=== PATIENT | female | born 1985 | race Hispanic/Latino ===

== ENCOUNTER 2020-02-19 12:33 | Inpatient (IN) | payer OTHER ==
[2020-02-19 13:50] LABS: #Lymphocytes 1.3 thou/uL (1.20-3.40); #Monocytes 0.4 thou/uL (0.11-0.59); %Basophils 0.5 % (0.0-1.0); %Eosinophils 0.5 % (0.0-10.0); %Lymphocytes 18.7 % (21.0-51.0); %Neutrophils 74.3 % (42.0-75.0); Hemoglobin 6.3 g/dL (12.0-16.0); Mean Corpuscular HGB CONC 35.3 g/dL (32.0-36.0); Mean Corpuscular Hemoglobin 33.8 pg (27.0-31.0); Mean Corpuscular Volume 95.8 fL (78.0-98.0); Mean Platelet Volume 7.6 fL (7.4-10.4); Platelet Count 235 thou/uL (130-400); RBC Distribution Width 10.8 % (11.5-14.5); Red Blood Cell (RBC) Count 1.86 mill/uL (4.20-5.40); White Blood Cell (WBC) Count 6.7 thou/uL (4.8-10.8)
[2020-02-19 14:06] LABS: BHCG - Serum Negative (NEGATIVE); Pregs Control Background? CLEAR/WHITE (CLR/WHITE); Pregs Control Bar Appear? YES (CONTROL BAR)
[2020-02-19 14:19] LABS: ALT (SGPT) 7 U/L (8-55); AST (SGOT) 12 U/L (5-34); Albumin 4.1 g/dL (3.5-5.0); Alkaline Phosphatase 81 U/L (40-110); Anion Gap 27 mmol/L (10-20); BUN (Urea Nitrogen) 121 mg/dL (7.0-18.7); Bilirubin, Total 0.4 mg/dL (0.2-1.2); Calc. Creatinine Clearance 0 mL/min (70-130); Carbon Dioxide 14 mmol/L (22-29); Chloride 105 mmol/L (98-107); Estimated GFR-MDRD 3; Globulin 3.3 g/dL (2.4-3.5); Glucose 102 mg/dL (70-105); Potassium 4.2 mmol/L (3.5-5.1); Protein, Total 7.4 g/dL (6.0-8.3); Sodium 142 mmol/L (136-145)
[2020-02-19 14:29] LABS: Calcium 4.9 mg/dL (7.8-10.44)
[2020-02-19 15:23] LABS: Magnesium 2.5 mg/dL (1.6-2.6)
[2020-02-19] MEDS ORDERED: Sodium Bicarbonate 2.5 MEQ/5 ML VIAL ONE (16:00)
[2020-02-19] MEDS ORDERED: Sodium Bicarb 50 MEQ/50 ML VIAL ONE (16:00)
[2020-02-19 16:08] LABS: Bacteria/HPF 4+ HPF (None Seen); Bilirubin Negative (Negative); Blood, Urine 1+ (Negative); Clarity Turbid (Clear); Glucose, Urine (Dipstick) Normal (Negative); Ketone, Urine Negative (Negative); Leukocyte 500 Leu/uL (Negative); Nitrite Negative (Negative); Protein, Urine (Dipstick) 300 mg/dL (Neg-Trace); Squamous Epithelial 0-3 HPF (0-3); Urobilinogen Normal mg/dL (Less than 2); WBC/HPF Greater than 50 HPF (0-3); pH, Urine 6.5 (5.0-9.0)
--- NOTE | 2020-02-19 16:54 | ULT ---
US Renal Bilateral STANDARD: 02/19/2020 3:41 PM CLINICAL HISTORY: Renal failure. STUDY: Renal ultrasound COMPARISON: None. FINDINGS: Right kidney: Echogenicity: Increased. Masses/cysts: 1.1 cm cyst in the upper pole Hydronephrosis: None. Calcifications: None. Length: 6.1 cm Left kidney: Echogenicity: Increased. Masses/cysts: None. Hydronephrosis: None. Calcifications: None. Length: 9.0 cm Limited visualization of the urinary bladder is unremarkable. IMPRESSION: 1. Echogenic kidneys are likely secondary to chronic medical renal disease 2. Right renal cyst
[2020-02-19] MEDS ORDERED: Calcium Carbonate 500 MG ChewTAB PO PRN (17:14)
[2020-02-19] MEDS ORDERED: Calcium Gluconate 4.6 MEQ in Sodium Chloride 0.9% 100 ML IVPB SCH (18:00)
[2020-02-19] MEDS ORDERED: Labetalol HCl 100 MG/20 ML VIAL SLOW IVP PRN (18:54)
[2020-02-19] MEDS ORDERED: CEFAZOLIN 2 GM in Premix Bag 1 BAG IVPB SCH (19:15)
--- NOTE | 2020-02-19 19:46 | HP ---
PRIMARY CARE PHYSICIAN: [facility] in [facility]. CHIEF COMPLAINT: Lab abnormality. HISTORY OF PRESENT ILLNESS: This is a 35-year-old female who presents after a 2-week history of nausea, vomiting, and diarrhea. She states she has vomiting about two or three times a day, has occasional loose bowel movements with that. All of this got better after about 3 days ago. She had noted some blurry vision of her left eye and also noted her skin seems to be changed in color a couple of weeks ago and that she was having ecchymoses on her arms and legs on and off for the last couple of weeks as well. Denies any other symptoms and states she feels fairly normal right now. REVIEW OF SYSTEMS: CONSTITUTIONAL: No fevers. No chills. No weight changes. EYES: No double vision. She had blurred vision as per HPI. ENT: No congestion, drainage, or sore throat. CARDIOVASCULAR: No chest pain or palpitations. PULMONARY: No coughing, wheezing, or shortness of breath. GASTROINTESTINAL: No abdominal pain. The rest is as per the HPI. No blood noted in her bowel movements or in her vomit. GENITOURINARY: No dysuria or hematuria. She has not noticed any change in her urine output, but states that her urine has smelled somewhat funny for the last couple of weeks. EXTREMITIES: No muscle aches or joint pains. SKIN: As per HPI. NEUROLOGIC: No numbness, tingling, or focal weakness. PAST MEDICAL HISTORY: None. PAST SURGICAL HISTORY: None. SOCIAL HISTORY: No tobacco, alcohol, or illicit drug use. The patient is . She is a full code. Should she be incapacitated, her would be her next medical decision maker. His name is Angela Shaver. FAMILY HISTORY: She has a cousin, who was born with his one kidney. No other significant medical problems in the family. ALLERGIES: NO KNOWN DRUG ALLERGIES. CURRENT MEDICATIONS: Amlodipine 5 mg daily, started a couple of days ago when she went to the clinic and they noted that she had some high blood pressure. PHYSICAL EXAMINATION: VITAL SIGNS: Blood pressure 146/96, pulse 96, respirations 20, temperature 98.2, and O2 saturation 100% on room air. GENERAL: This is a well-developed, well-nourished female, in no acute distress. HEENT: Pupils equal, round, and reactive to light. Oropharynx clear without lesions, erythema, or exudate. NECK: Supple. No lymphadenopathy. No thyroid nodules or enlargement. No JVD. HEART: Regular rate and rhythm. No murmurs, rubs, or gallops. LUNGS: Clear to auscultation bilaterally. No wheezes, crackles, or rhonchi. ABDOMEN: Soft, nontender to palpation. Normoactive bowel sounds. No hepatosplenomegaly or other masses. EXTREMITIES: No clubbing, cyanosis, or edema. SKIN: The patient has a bit of slight yellowish tinge to her skin. No significant bruising right now. NEUROLOGIC: The patient moves all extremities equally. No facial droop. PSYCHIATRIC: Alert and oriented x3. Normal mood and affect. LABORATORY DATA: CBC with a white blood cell count of 6.7, hemoglobin 6.3, hematocrit 17.9, normal MCV, platelet count is normal. Complete metabolic panel is notable for carbon dioxide of 14, anion gap of 27, BUN of 121, creatinine of 13, calcium of 4.9. The rest was normal. Magnesium was normal. Troponin was negative x1. Brain-natriuretic peptide was elevated at 896. Lipase was negative. Serum test was negative and lactic acid was negative. Urinalysis was notable for significant protein, leuk esterase, greater than 50 white blood cells, and 4+ bacteria along with 11 to 20 red blood cells, and culture on that is pending. IMAGING STUDIES: Renal ultrasound shows echogenic kidneys, likely secondary to chronic medical renal disease and a right renal cyst. ASSESSMENT: 1. Acute renal failure, uncertain etiology. Dr. Keating has been consulted. He is having Dr. Colvin put in a line for dialysis and he will start dialysis on her immediately. 2. Anemia, possibly related to her renal disease without any significant evidence of iron deficiency. Dr. Keating has ordered iron studies on her for the morning. The patient is going to get a transfusion starting now and also with her dialysis. 3. Hypertension, likely related to her renal disease. This should improve, so she has diuresed. We will give some p.r.n. medications for severe hypertension. 4. Deep venous thrombosis prophylaxis. We will put the patient on sequential compression devices while in bed. 5. Gastrointestinal prophylaxis. We will put the patient on Pepcid twice a day. CODE STATUS: The patient is a full code. Should she be incapacitated, her would be her medical decision maker. Job ID: [id number]
[2020-02-19] MEDS ORDERED: Sodium Bicarbonate Tab 325 MG TAB PO SCH (21:00)
[2020-02-19 21:06] VITALS: BMI 22.5
[2020-02-19] MEDS ORDERED: Ondansetron PF 4 MG/2 ML Vial IVP PRN (21:33)
[2020-02-19] MEDS ORDERED: Guaifenesin DM 100-10/5 ML UDCUP PO PRN (21:33)
[2020-02-19] MEDS ORDERED: Acetaminophen 650 MG Suppository PR PRN (21:33)
[2020-02-19] MEDS ORDERED: Senokot S 8.6-50 MG TAB PO PRN (21:33)
[2020-02-19] MEDS: Acetaminophen 325 MG TAB PO PRN (23:25)
[2020-02-19] MEDS: Famotidine/PF 20 mg/2ml Vial SLOW IVP SCH (23:25)
--- NOTE | 2020-02-19 23:50 | ULT ---
EXAM: Vein mapping for dialysis access HISTORY: End-stage renal disease. TECHNIQUE: Multiplanar grayscale and color Doppler images were obtained in a bilateral upper extremit y venous ultrasound. Spectral analysis of the Doppler waveforms of the vessels were performed. FINDINGS: The bilateral internal jugular veins and subclavian veins are patent without evidence of th rombus. Right brachial artery 37 mm Right radial artery 21 mm Right ulnar artery 15 mm Left brachial artery 36 mm Left radial artery 15 mm Left ulnar artery 15 mm RIGHT CEPHALIC VEIN in millimeters 34 -- Shoulder 37 -- Upper arm 38 -- Mid upper arm 47-- Just proximal to the elbow 26 -- Just distal to the elbow 26 -- Forearm 13 -- Wrist RIGHT BASILIC VEIN in millimeters 39 -- Shoulder 31 -- Upper arm 33 -- Mid upper arm 33 -- Just proximal to the elbow 25 -- Just distal to the elbow 8 -- Forearm Not seen -- Wrist LEFT CEPHALIC VEIN in millimeters 33 -- Shoulder 39 -- Upper arm 39 -- Mid upper arm 46 -- Just proximal to the elbow 28 -- Just distal to the elbow 20 -- Forearm 12 -- Wrist LEFT BASILIC VEIN in millimeters 53 -- Shoulder 46 -- Upper arm 28 -- Mid upper arm 29 -- Just proximal to the elbow 19 -- Just distal to the elbow 14 -- Forearm 8 -- Wrist IMPRESSION: Vein mapping for dialysis access as above
--- NOTE | 2020-02-19 23:54 | CON ---
DATE OF CONSULTATION: SUBJECTIVE: A 35-year-old female, 3, para 3, had labs drawn today, noting her to be acidotic and meet criteria for dialysis and sent to the emergency room where a left arm antecubital IV was placed and blood draws from right antecubital were performed. Dr. Keating had seen asked me to see her regarding initiation of dialysis. She is acidotic, although potassium is within normal limits. Plan is for a temporary dialysis catheter to right groin to enable dialysis early in the morning and plan placement of cuffed tunneled dialysis catheter in the right arm or left arm fistula pending vein mapping. The left antecubital IV has been removed immediately on my arrival. At the bedside, I placed a right femoral catheter and she will have dialysis first thing in the morning and be n.p.o. after midnight. ALLERGIES: NONE. SOCIAL HISTORY: Tobacco, none. Alcohol, none. MEDICATIONS: 1. Outpatient vitamins. 2. Iron. 3. Ergocalciferol. PAST SURGICAL HISTORY: Noncontributory. PAST MEDICAL HISTORY: Hypertension, chronic kidney disease, end-stage renal disease at this point. REVIEW OF SYSTEMS: Noncontributory. Patient is . Her works for [employer]. The patient is here illegally and does not have any funding. PHYSICAL EXAMINATION: VITAL SIGNS: Blood pressure 162/99, heart rate 110, respiratory rate 16, weight 55 kg. HEAD, EARS, EYES, NOSE, AND THROAT: Unremarkable. Sclerae nonicteric. SKIN: Nonjaundiced. LUNGS: Clear to auscultation. CARDIAC: Regular rate and rhythm. No murmur or gallop. ABDOMEN: Soft, nontender. No masses. No hernias. EXTREMITIES: Palpable radial pulses. IV left antecubital removed and bandaged right elbow consistent with blood draws. ASSESSMENT/PLAN: 1. End-stage renal disease. Plan; placement of a femoral vein dialysis catheter. Initiate dialysis as soon as possible. Plan hemodialysis catheter cuff tunnel placed tomorrow and right or left arm fistula pending vein mapping. She is not a candidate for peritoneal dialysis due to her illegal status, lack of insurance. 2. Hypertension. Job ID: [id number]
[2020-02-20] MEDS: Acetaminophen 325 MG TAB PO PRN (00:45)
--- NOTE | 2020-02-20 01:16 | CON ---
DATE OF CONSULTATION: CONSULTING PHYSICIAN: Rishabh Zapata MD REQUESTING PHYSICIAN: Dr. Walker . REASON FOR CONSULTATION: Severe laboratory abnormality/renal failure. IMPRESSION: 1. Chronic kidney disease, stage 5. 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 2. Nephrotic syndrome in the context of #1. 3. Severe metabolic acidosis. 4. Hypocalcemia, likely in the context of hypovitaminosis D. 5. The patient likely does have dyslipidemia. 6. Anemia, likely anemia of chronic kidney disease. PLAN: 1. The patient is at the point that is going to require a renal replacement therapy. We, therefore, consulted surgery for access placement including tunneled arm fistula. 2. Renally dose all medications for low GFR. 3. Sodium bicarbonate supplementation with oral sodium bicarbonate. 4. Discontinue IV fluid. 5. We will transfuse this patient with 1 unit of blood today and second unit during dialysis tomorrow. 6. Iron studies. The patient likely to benefit from erythropoiesis-stimulating agent. 7. We will check the vitamin D level in this patient as well as the parathyroid hormone and adjustments to be made accordingly. HISTORY OF PRESENT ILLNESS: History is that of a 35-year-old female patient known to me in the past, initially I did evaluate this patient because of proteinuria in . Again, the diagnosis of possible reflux nephropathy that has resulted in shrunken right kidney with some obstructive uropathy component. The patient was evaluated with a creatinine of about 1.67 baseline; however, the patient seems to have progressed and presented today with a creatinine of above 13 with hemoglobin of 6 and noted to be severely acidotic, but not hyperkalemic. As a result of these findings, decision has been taken to involve Renal in the management of this case. For the past two weeks, the patient has been experiencing weakness, poor appetite, nausea, and feeling very cold, all these likely in the context of uremic symptomatology. PAST MEDICAL HISTORY: As documented above. SOCIAL HISTORY: No alcohol. No tobacco. No illicit drug use. The patient is . FAMILY HISTORY: Significant for a cousin, who was born with one kidney. Otherwise, nobody on dialysis. REVIEW OF SYSTEMS: As documented in the body of the history. All the other systems were reviewed and found not to be significantly related to present illness. LABORATORY INVESTIGATION: Significant for the following; hemoglobin 6.3, creatinine 13.9 with BUN upto 121 and bicarb of 14, BNP 896, and calcium of 4.9. Urine with significant evidence of infection of UTI and proteinuria. PHYSICAL EXAMINATION: GENERAL: The patient was found not to be in any obvious distress, hemodynamically stable. HEENT: Unremarkable. CARDIOVASCULAR SYSTEM: First and second heart sounds were heard. RESPIRATORY SYSTEM: Clear to auscultation. DIGESTIVE SYSTEM: Revealed a benign abdomen with positive bowel sounds. EXTREMITIES: No peripheral edema. SKIN: No new gross rash. LYMPHATICS: No peripheral lymphadenopathy. SUMMARY: A 35-year-old female patient with most likely chronic kidney disease stage 5 in the context of possible reflux nephropathy/secondary FSGS, cannot completely rule out urinary tract infection and the patient to be treated accordingly. Thank you for this consultation. We will follow with you. Job ID: [id number]
[2020-02-20 04:38] LABS: #Basophils 0.1 thou/uL (0.0-0.2); #Lymphocytes 1.3 thou/uL (1.20-3.40); #Monocytes 0.5 thou/uL (0.11-0.59); #Neutrophils 5.9 thou/uL (1.40-6.50); %Basophils 0.8 % (0.0-1.0); %Eosinophils 0.2 % (0.0-10.0); %Lymphocytes 16.4 % (21.0-51.0); %Monocytes 6.2 % (0.0-10.0); %Neutrophils 76.4 % (42.0-75.0); Hemoglobin 6.8 g/dL (12.0-16.0); Mean Corpuscular HGB CONC 35.9 g/dL (32.0-36.0); Mean Corpuscular Volume 94.7 fL (78.0-98.0); Mean Platelet Volume 7.7 fL (7.4-10.4); Platelet Count 193 thou/uL (130-400); Red Blood Cell (RBC) Count 1.99 mill/uL (4.20-5.40); White Blood Cell (WBC) Count 7.7 thou/uL (4.8-10.8)
[2020-02-20 04:55] LABS: Albumin 3.7 g/dL (3.5-5.0); Anion Gap 24 mmol/L (10-20); BUN (Urea Nitrogen) 120 mg/dL (7.0-18.7); BUN/Creatinine Ratio 8.71; Calc. Creatinine Clearance 5 mL/min (70-130); Carbon Dioxide 16 mmol/L (22-29); Cardiac Risk 4.6 (Less than 4.5); Chloride 105 mmol/L (98-107); Cholesterol 137 mg/dl (< 200 Desired); Estimated GFR-MDRD 3; Glucose 101 mg/dL (70-105); HDL Cholesterol 30 mg/dL (>60 Neg Risk); Iron 70 ug/dL (50-170); Iron Binding Capacity, Total 238 mcg/dL (265-497); LDL Cholesterol, Calculated 84 mg/dL; Potassium 4.3 mmol/L (3.5-5.1); Sodium 141 mmol/L (136-145); Triglycerides 117 mg/dL (Less than 150)
[2020-02-20 05:15] LABS: Phosphorus 10.3 mg/dL (2.3-4.7)
[2020-02-20 05:19] LABS: Ferritin 50.64 ng/mL (10-291)
[2020-02-20 05:32] LABS: HBSAg Index 0.24 S/CO (0-0.99); Hep B Core Total Ab Non-Reactive (NonReactive); Hep B Surf Ag Non-Reactive S/CO (NonReactive); Hep C IgG Ab Non-Reactive (NonReactive); Hep C Index 0.05 S/CO (0-0.79)
[2020-02-20 05:38] LABS: HBSAB Concentration 66.84 mIU/mL; Hep B Surf AB Reactive (NonReactive)
[2020-02-20] MEDS ORDERED: Calcium Gluconate 4.6 MEQ in Sodium Chloride 0.9% 100 ML IVPB SCH (06:00)
--- NOTE | 2020-02-20 06:23 | OP ---
DATE OF PROCEDURE: 02/19/2020 PREOPERATIVE DIAGNOSES: End-stage renal disease, acidosis. POSTOPERATIVE DIAGNOSES: End-stage renal disease, acidosis. PROCEDURE PERFORMED: Right femoral vein Trialysis catheter. ANESTHESIA: 1% Xylocaine. PROCEDURE: At the patient's bedside in the emergency room, the right groin was clipped of hair, prepared with ChloraPrep and draped in routine fashion. 1% Xylocaine was infiltrated in the skin and subcutaneous tissue. Seldinger technique used to place a Trialysis catheter, securing with 3-0 nylon suture. Each port aspirated blood, flushed with saline solution, heparinized. The patient tolerated the procedure well. Sterile dressing applied. Job ID: [id number]
[2020-02-20 08:17] LABS: SARS-CoV-2 NAA Rapid Test Not Detected (NotDetected)
--- NOTE | 2020-02-20 09:07 | PDOC.HOSPP ---
- Subjective Encounter Date: 02/20/20 Encounter Time: 10:00 Subjective: Patient feeling fine. Getting dialysis and transfusion right now. - Objective Vital Signs & Weight: Vital Signs (12 hours) Temp Pulse Pulse Resp BP BP Pulse Ox 02/20/20 08:00 98 02/20/20 07:54 98.3 F 87 17 141/93 H 98 02/20/20 04:00 98.4 F 89 20 119/74 100 02/20/20 02:49 98.5 F 90 18 131/84 02/20/20 00:51 98.9 F 96 18 137/92 H 100 02/20/20 00:47 100 02/20/20 00:30 99 F 104 H 20 148/89 H 99 Weight Weight 119 lb 6.4 oz I&O: 02/19/20 02/20/20 02/21/20 06:59 06:59 06:59 Intake Total 550 Balance 550 Result Diagrams: 02/20/20 03:52 02/20/20 03:52 Hospitalist ROS - Review of Systems Constitutional: denies: fever, chills Respiratory: denies: cough, shortness of breath Cardiovascular: denies: chest pain, palpitations Gastrointestinal: denies: nausea, vomiting, abdominal pain, diarrhea Genitourinary: denies: dysuria, hematuria - Medication Medications: Active Medications Generic Name Dose Route Start Last Admin Trade Name Freq PRN Reason Stop Dose Admin Acetaminophen 650 mg 02/19/20 21:33 02/20/20 00:45 Acetaminophen 325 Mg Tab PO 325 mg Q4H PRN Administration Headache/Fever/Mild Pain (1-3) Famotidine 20 mg 02/19/20 22:00 02/19/20 23:25 Famotidine/Pf 20 Mg/2ml Vial SLOW IVP 20 mg 2200 LEILANI Administration - Exam General Appearance: NAD, awake alert ENT: moist mucosa Heart: RRR, no murmur, no gallops, no rubs Respiratory: CTAB, no wheezes, no rales, no ronchi Gastrointestinal: soft, non-tender, non-distended, normal bowel sounds Extremities: no edema Psychiatric: normal affect, normal behavior, A&O x 3 Hosp A/P (1) End-stage renal disease needing dialysis Code(s): N18.6 - END STAGE RENAL DISEASE; Z99.2 - DEPENDENCE ON RENAL DIALYSIS Status: Acute (2) Nephrotic syndrome Code(s): N04.9 - NEPHROTIC SYNDROME WITH UNSPECIFIED MORPHOLOGIC CHANGES Status: Acute (3) Uremia of renal origin Code(s): N19 - UNSPECIFIED KIDNEY FAILURE Status: Acute (4) Hypocalcemia Code(s): E83.51 - HYPOCALCEMIA Status: Acute (5) Hyperphosphatemia Code(s): E83.39 - OTHER DISORDERS OF PHOSPHORUS METABOLISM Status: Acute (6) Anemia in chronic renal disease Code(s): N18.9 - CHRONIC KIDNEY DISEASE, UNSPECIFIED; D63.1 - ANEMIA IN CHRONIC KIDNEY DISEASE Status: Acute - Plan Dr. Keating initiating dialysis Transfusions for anemia Urine growing back GBS, possible chronic infections as source of ESRD, will treat with Rocephin, can transition to oral penicillin on discharge
[2020-02-20] MEDS ORDERED: Bupivacaine HCl 0.5%/Epinephrine 1:200,000/PF 30 ml Vial ONE (10:20)
[2020-02-20] MEDS ORDERED: Lidocaine 1% PF 5 ML VIAL ONE (10:20)
[2020-02-20] MEDS ORDERED: PHENYLEPHRINE-NS 100 MCG/ML 10 ML SYRINGE ONE (10:20)
[2020-02-20] MEDS ORDERED: PROPOFOL 200 MG/20 ML VIAL ONE (10:20)
[2020-02-20] MEDS ORDERED: Dexamethasone 20 MG/5 ML VIAL ONE (10:20)
[2020-02-20] MEDS ORDERED: Ondansetron PF 4 MG/2 ML Vial ONE ×2 (10:20→18:18)
[2020-02-20] MEDS: cefTRIAXone\\ROCEPHIN 1 GM in Sodium Chloride 0.9% 100 ML IVPB SCH (12:11)
[2020-02-20] MEDS ORDERED: Fentanyl 100 MCG/2 ML VIAL ONE ×2 (14:08→17:57)
[2020-02-20] MEDS ORDERED: Midazolam HCl 2 mg/2 ml Vial ONE (14:08)
[2020-02-20] MEDS ORDERED: Heparin 10,000 UNITS/ 10 ML VIAL ONE (14:32)
[2020-02-20] MEDS ORDERED: traMADol HCl 50 MG TAB PO PRN (17:39)
--- NOTE | 2020-02-20 18:15 | RAD ---
CHEST ONE VIEW: 02/20/20 HISTORY: Postop. Heart size is enlarged. Right sided Hemosplit catheter is present. The catheter tip overlies the more distal superior vena cava. It lies slightly midline which is probably related to slight rotation. Le ft sided subclavian line is seen. Catheter tip overlies the right atrium. No pneumothorax. No pleura l effusions. IMPRESSION: 1. Cardiomegaly. 2. Line placements as described above. POS: OFF
[2020-02-20] MEDS ORDERED: Non-Formulary Medication 1 EACH PO PRN (18:38)
[2020-02-20] MEDS ORDERED: Ondansetron HCl/PF 4 MG/2 ML Vial IVP PRN (18:45)
[2020-02-20] MEDS ORDERED: Promethazine HCl 25 MG/ML VIAL IM/IV PRN (18:45)
[2020-02-20] MEDS: Acetaminophen 500 MG TAB PO PRN (20:54)
[2020-02-20] MEDS: Famotidine/PF 20 mg/2ml Vial SLOW IVP SCH (22:30)
--- NOTE | 2020-02-20 23:30 | OP ---
DATE OF PROCEDURE: 02/20/2020 PREOPERATIVE DIAGNOSES: End-stage renal disease, poor IV access. POSTOPERATIVE DIAGNOSES: End-stage renal disease, poor IV access. PROCEDURES PERFORMED: Right IJ cuffed tunneled hemodialysis catheter; left IJ triple-lumen catheter; fluoroscopy and ultrasound used; left arm primary fistula; perforating branch antecubital vein outflow; primary cephalic vein; secondary basilic vein; retrograde antecubital vein preserved, 4 mm coronary dilator calibration outflow cephalic vein, upper arm. ANESTHESIA: General with regional, local of 0.5% Marcaine with epinephrine. DESCRIPTION OF PROCEDURE: The patient was taken to the operating room where under left upper extremity regional anesthesia and general LMA, the neck, chest, and left upper extremity were prepared with ChloraPrep and draped in a routine fashion. Local anesthetic was infiltrated in the skin and subcutaneous tissue for placement of the hemodialysis and central line catheters. Using ultrasound guidance, the right and left internal jugular veins were cannulated with trocar catheter. J-wire was threaded. Trocar catheter was removed. Skin site enlarged sharply, stab incision was made over the right chest. Seldinger technique used to place a triple-lumen catheter in the left IJ, securing it with 3-0 nylon suture and sterile dressing applied. Each port aspirated blood and flushed with saline solution. Tunneling device was used to tunnel the hemodialysis catheter. AngioDynamics, pre-curved placed at the fabric cuff into the skin exit site over the right chest, securing it with 3-0 nylon suture. A sterile dressing applied. Smaller and medium size dilators were placed over the J-wire and into the internal jugular vein and removed. Dilator and Peel-Away sheath placed over the J-wire under fluoroscopic visualization of the superior vena cava, and dilator and J-wire removed. Catheter placed through the Peel-Away sheath. Peel-Away sheath removed. Platysma was approximated with 4-0 Monocryl, skin with subdermal 4-0 Monocryl, and Paxton glue applied. Each port aspirated blood and flushed with saline solution and heparinized saline solution of 1000 units of heparin per mL, indicating volume in the port. Fluoroscopic images revealed good line placement. Attention was then turned to the left forearm, where a longitudinal incision was made in the proximal volar forearm below the antecubital fossa, carried down through the skin, and subcutaneous tissue, and the brachial, ulnar, and proximal radial artery dissected free. Perforating branch of the antecubital vein dissected free. Branches were divided between clips and 4-0 silk ties, spatulated over branch point and interrogated with coronary dilators, passing coronary dilators from 2 mm to a 4 mm coronary dilator out to the cephalic vein in the upper arm without obstruction. It was flushed with heparinized saline solution. The patient had been given 6000 units of heparin intravenously. Brachial, ulnar, and proximal radial artery clamped with atraumatic vascular clamps. Longitudinal arteriotomy made in the small proximal radial artery and vein likewise spatulated accordingly and continuous suture of 6-0 Prolene used. For the anastomosis, the end vein to proximal radial artery with continuous suture of 6-0 Prolene, getting hemostasis with 6-0. Once the vascular clamps were released, good Doppler signal noted in the cephalic vein outflow tract. The patient was given 25 mg of protamine intravenously by Anesthesia. Subcutaneous tissue was approximated with 3-0 Monocryl, skin with subdermal 4-0 Monocryl, and Paxton glue applied. The patient tolerated the procedure well. Job ID: [id number]
[2020-02-21 04:32] LABS: #Lymphocytes 0.5 thou/uL (1.20-3.40); #Monocytes 0.3 thou/uL (0.11-0.59); #Neutrophils 6.6 thou/uL (1.40-6.50); %Eosinophils 0.1 % (0.0-10.0); %Lymphocytes 6.2 % (21.0-51.0); %Monocytes 4.5 % (0.0-10.0); %Neutrophils 89.3 % (42.0-75.0); Hemoglobin 7.7 g/dL (12.0-16.0); Mean Corpuscular HGB CONC 34.9 g/dL (32.0-36.0); Mean Corpuscular Hemoglobin 33.7 pg (27.0-31.0); Mean Corpuscular Volume 96.5 fL (78.0-98.0); Mean Platelet Volume 7.6 fL (7.4-10.4); Platelet Count 186 thou/uL (130-400); RBC Distribution Width 11.5 % (11.5-14.5); Red Blood Cell (RBC) Count 2.29 mill/uL (4.20-5.40); White Blood Cell (WBC) Count 7.4 thou/uL (4.8-10.8)
[2020-02-21 05:01] LABS: Albumin 3.5 g/dL (3.5-5.0); Anion Gap 22 mmol/L (10-20); BUN (Urea Nitrogen) 88 mg/dL (7.0-18.7); BUN/Creatinine Ratio 8.41; Calc. Creatinine Clearance 6 mL/min (70-130); Calcium 5.7 mg/dL (7.8-10.44); Carbon Dioxide 19 mmol/L (22-29); Chloride 105 mmol/L (98-107); Estimated GFR-MDRD 4; Glucose 200 mg/dL (70-105); Phosphorus 7.7 mg/dL (2.3-4.7); Potassium 4.6 mmol/L (3.5-5.1); Sodium 141 mmol/L (136-145)
[2020-02-21] MEDS ORDERED: Calcium Gluconate 4.6 MEQ in Sodium Chloride 0.9% 100 ML IVPB SCH (05:30)
[2020-02-21] MEDS ORDERED: Epoetin (ESRD) 20,000 UNITS/ML SC SCH (06:30)
--- NOTE | 2020-02-21 08:13 | PDOC.HOSPP ---
- Subjective Encounter Date: 02/21/20 Encounter Time: 10:00 Subjective: Patient just back from dialysis. Did fine during dialysis, but on arrival in the room became nauseated and tachycardic. Starting to feel a bit better right now. - Objective Vital Signs & Weight: Vital Signs (12 hours) Temp Pulse Resp BP Pulse Ox 02/21/20 04:00 96 F L 96 18 97/57 L 02/21/20 00:00 100 18 142/82 H 98 Weight Weight 117 lb 15.157 oz I&O: 02/20/20 02/21/20 02/22/20 06:59 06:59 06:59 Intake Total 550 460 Output Total 400 Balance 550 60 Result Diagrams: 02/21/20 04:09 02/21/20 04:09 Hospitalist ROS - Review of Systems Constitutional: denies: fever, chills Eyes: denies: pain Respiratory: denies: cough, shortness of breath Cardiovascular: denies: chest pain, palpitations Gastrointestinal: reports: nausea. denies: vomiting, abdominal pain - Medication Medications: Active Medications Generic Name Dose Route Start Last Admin Trade Name Freq PRN Reason Stop Dose Admin Acetaminophen 1,000 mg 02/20/20 17:39 02/20/20 20:54 Acetaminophen 500 Mg Tab PO 1,000 mg Q6H PRN Administration Moderate to Severe Pain (6-10) Famotidine 20 mg 02/19/20 22:00 02/20/20 22:30 Famotidine/Pf 20 Mg/2ml Vial SLOW IVP 20 mg 2200 LEILANI Administration Ceftriaxone Sodium 1 gm/ 100 mls @ 200 mls/hr 02/20/20 10:00 02/20/20 12:11 Sodium Chloride IVPB 100 mls Q24HR LEILANI Administration Tramadol HCl 50 mg 02/20/20 17:39 02/21/20 01:24 Tramadol Hcl 50 Mg Tab PO 50 mg Q12H PRN Administration Pain - Exam General Appearance: NAD, awake alert ENT: moist mucosa Heart: no murmur, no gallops, no rubs Heart - other findings: mild tachycardia Respiratory: CTAB, no wheezes, no rales, no ronchi Gastrointestinal: soft, non-tender, non-distended, normal bowel sounds Psychiatric: normal affect, normal behavior, A&O x 3 Hosp A/P (1) End-stage renal disease needing dialysis Code(s): N18.6 - END STAGE RENAL DISEASE; Z99.2 - DEPENDENCE ON RENAL DIALYSIS Status: Acute (2) Nephrotic syndrome Code(s): N04.9 - NEPHROTIC SYNDROME WITH UNSPECIFIED MORPHOLOGIC CHANGES Status: Acute (3) Uremia of renal origin Code(s): N19 - UNSPECIFIED KIDNEY FAILURE Status: Acute (4) Hypocalcemia Code(s): E83.51 - HYPOCALCEMIA Status: Acute (5) Hyperphosphatemia Code(s): E83.39 - OTHER DISORDERS OF PHOSPHORUS METABOLISM Status: Acute (6) Anemia in chronic renal disease Code(s): N18.9 - CHRONIC KIDNEY DISEASE, UNSPECIFIED; D63.1 - ANEMIA IN CHRONIC KIDNEY DISEASE Status: Acute - Plan Dr. Keating initiating dialysis Transfusions for anemia, now Hgb about 7 Urine growing back GBS, possible chronic infections as source of ESRD, will treat with Rocephin, can transition to oral penicillin on discharge
[2020-02-21] MEDS: Acetaminophen 500 MG TAB PO PRN (11:18)
[2020-02-21] MEDS: Ondansetron ODT 4 MG TAB PO PRN ×2 (11:18→17:39)
[2020-02-21] MEDS: cefTRIAXone\\ROCEPHIN 1 GM in Sodium Chloride 0.9% 100 ML IVPB SCH (11:19)
[2020-02-21] MEDS ORDERED: EPOETIN ALFA-EPBX (ESRD) 4,000 UNIT/ML VIAL SC SCH (12:00)
[2020-02-21] MEDS ORDERED: Heparin 10,000 UNITS/ 10 ML VIAL ONE (14:29)
[2020-02-21] MEDS: Famotidine/PF 20 mg/2ml Vial SLOW IVP SCH (21:35)
[2020-02-22] MEDS: Acetaminophen 500 MG TAB PO PRN (01:53)
[2020-02-22 05:26] LABS: Albumin 3.5 g/dL (3.5-5.0); Anion Gap 16 mmol/L (10-20); BUN (Urea Nitrogen) 38 mg/dL (7.0-18.7); Calc. Creatinine Clearance 10 mL/min (70-130); Carbon Dioxide 26 mmol/L (22-29); Chloride 101 mmol/L (98-107); Estimated GFR-MDRD 7; Glucose 101 mg/dL (70-105); Phosphorus 5.3 mg/dL (2.3-4.7); Potassium 3.9 mmol/L (3.5-5.1); Sodium 139 mmol/L (136-145)
--- NOTE | 2020-02-22 07:18 | PRG ---
DATE OF SERVICE: 02/21/2020 SUBJECTIVE: The patient is seen and examined. Still has some pain from the recent procedure. Noted with the following vital signs. OBJECTIVE: VITAL SIGNS: Afebrile, temperature 98.7, pulse of 96 to 150, respiratory rate of 18, O2 saturation of 99% with blood pressure 142/91. HEENT: Unremarkable. CARDIOVASCULAR: First and second heart sounds were heard. RESPIRATORY: Clear to auscultation. DIGESTIVE SYSTEM: Revealed a benign abdomen. EXTREMITIES: No peripheral edema. SKIN: No new gross rash. LYMPHATICS: No peripheral lymphadenopathy. SKIN: Showed evidence of recent fistula placement which has a . LABORATORY INVESTIGATION: Hemoglobin of 7.7. Chemistry; creatinine down to 10.47, BUN of 88, bicarb of 19, calcium still remains low at 5.7, phosphorus high at 7.7. IMPRESSION: 1. End-stage renal disease. 2. Hypocalcemia with hyperphosphatemia. 3. Metabolic acidosis. 4. Anemia of chronic kidney disease. 5. Secondary hyperparathyroidism. PLAN: 1. The patient did undergo dialysis today, came back with a heart rate of 150. We will rest this patient's body tomorrow and allow of fluid prior to initiating this patient on Sunday, Sunday, Sunday schedule dialysis. 2. Anemia of chronic kidney disease with erythropoiesis stimulating agent. 3. Renally dose all medications. Continue to replete calcium. 4. Continue with calcium based binder in order to address the hyperphosphatemia and by so doing secondary hyperparathyroidism. Meanwhile, the patient to benefit from active form of vitamin D. This patient is likely to pose a dispo challenge, given the fact that this patient is unfunded. We will continue to coordinate the dispo planning with the bilingual patient support caseworker. 5. Further management to be dependent on the clinical course. Job ID: [id number]
--- NOTE | 2020-02-22 08:32 | PDOC.HOSPP ---
- Subjective Encounter Date: 02/22/20 Encounter Time: 10:30 Subjective: Patient had some tachycardia, nausea, and vomit x2 after dialysis yesterday. Dr. Keating giving her a break day today. Feels fine this morning. - Objective Vital Signs & Weight: Vital Signs (12 hours) Temp Pulse Resp BP Pulse Ox 02/22/20 08:00 99 02/22/20 03:49 98.3 F 93 15 123/82 98 Weight Weight 120 lb 9.486 oz I&O: 02/21/20 02/22/20 02/23/20 06:59 06:59 06:59 Intake Total 460 1050 Output Total 400 700 Balance 60 350 Result Diagrams: 02/21/20 04:09 02/22/20 04:05 Hospitalist ROS - Review of Systems Constitutional: denies: fever, chills Respiratory: denies: cough, shortness of breath Cardiovascular: denies: chest pain, palpitations Gastrointestinal: denies: nausea, vomiting, abdominal pain - Medication Medications: Active Medications Generic Name Dose Route Start Last Admin Trade Name Freq PRN Reason Stop Dose Admin Acetaminophen 1,000 mg 02/20/20 17:39 02/22/20 01:53 Acetaminophen 500 Mg Tab PO 1,000 mg Q6H PRN Administration Moderate to Severe Pain (6-10) Epoetin Phi-epbx 7,500 unit 02/21/20 12:00 02/21/20 11:24 Epoetin Phi-Epbx (Esrd) 4,000 Unit/Ml Vial SC 7,500 unit Q7D LEILANI Administration Famotidine 20 mg 02/19/20 22:00 02/21/20 21:35 Famotidine/Pf 20 Mg/2ml Vial SLOW IVP 20 mg 2200 LEILANI Administration Ceftriaxone Sodium 1 gm/ 100 mls @ 200 mls/hr 02/20/20 10:00 02/21/20 11:19 Sodium Chloride IVPB 100 mls Q24HR LEILANI Administration Ondansetron HCl 4 mg 02/19/20 21:33 02/21/20 17:39 Ondansetron Odt 4 Mg Tab PO 4 mg Q6H PRN Administration Nausea/Vomiting Sodium Chloride 10 ml 02/21/20 09:00 02/21/20 21:35 Flush - Normal Saline 10 Ml Syringe IVF 10 ml Q12HR LEILANI Administration Tramadol HCl 50 mg 10/23/20 17:39 02/21/20 01:24 Tramadol Hcl 50 Mg Tab PO 50 mg Q12H PRN Administration Pain - Exam General Appearance: NAD, awake alert ENT: moist mucosa Heart: RRR, no murmur, no gallops, no rubs Respiratory: CTAB, no wheezes, no rales, no ronchi Gastrointestinal: soft, non-tender, non-distended, normal bowel sounds Psychiatric: normal affect, normal behavior, A&O x 3 Hosp A/P (1) End-stage renal disease needing dialysis Code(s): N18.6 - END STAGE RENAL DISEASE; Z99.2 - DEPENDENCE ON RENAL DIALYSIS Status: Acute (2) Nephrotic syndrome Code(s): N04.9 - NEPHROTIC SYNDROME WITH UNSPECIFIED MORPHOLOGIC CHANGES Status: Acute (3) Uremia of renal origin Code(s): N19 - UNSPECIFIED KIDNEY FAILURE Status: Acute (4) Hypocalcemia Code(s): E83.51 - HYPOCALCEMIA Status: Acute (5) Hyperphosphatemia Code(s): E83.39 - OTHER DISORDERS OF PHOSPHORUS METABOLISM Status: Acute (6) Anemia in chronic renal disease Code(s): N18.9 - CHRONIC KIDNEY DISEASE, UNSPECIFIED; D63.1 - ANEMIA IN CHRONIC KIDNEY DISEASE Status: Acute - Plan Dr. Keating initiating dialysis Transfusions for anemia, now Hgb about 7 Urine growing back GBS, possible chronic infections as source of ESRD, will treat with Rocephin, can transition to oral penicillin on discharge Will need outpatient HD arranged before discharge
[2020-02-22] MEDS: Calcium Acetate 667 MG CAP PO SCH ×3 (09:04→16:46)
[2020-02-22] MEDS: Calcitriol 0.25 MCG CAP PO SCH (09:05)
[2020-02-22] MEDS: cefTRIAXone\\ROCEPHIN 1 GM in Sodium Chloride 0.9% 100 ML IVPB SCH (09:07)
--- NOTE | 2020-02-22 20:10 | PRG ---
DATE OF SERVICE: 02/22/2020 SUBJECTIVE: The patient is seen and examined, feeling much better, noted with the following vital signs. OBJECTIVE: VITAL SIGNS: Afebrile, temperature 97.2, pulse 108, respiratory rate of 18, O2 saturations of 99% with blood pressure 137/93 to 170/89. HEENT: Unremarkable. CARDIOVASCULAR SYSTEM: First and second heart sounds were heard. RESPIRATORY SYSTEM: Clear to auscultation anteriorly. DIGESTIVE SYSTEM: Revealed a benign abdomen. EXTREMITIES: No peripheral edema. SKIN: No new gross rash. LYMPHATIC: No peripheral lymphadenopathy. IMPRESSION: 1. End-stage renal disease. 2. Anemia of chronic kidney disease. 3. Secondary hyperparathyroidism. PLAN: 1. Erythropoiesis stimulating agent. 2. Renal replacement therapy tomorrow afterwards. The patient will likely to be on Sunday, Sunday, and Sunday. 3. Disposition challenge during the insurance status of this patient. We will coordinate this with the condominium manager and outpatient dialysis unit. 4. Further management will dependent on the clinical course. Job ID: [id number]
[2020-02-22] MEDS ORDERED: Famotidine 20 MG TAB PO SCH (22:15)
[2020-02-22] MEDS: Famotidine 20 MG TAB PO SCH (22:29)
[2020-02-22] MEDS: Famotidine/PF 20 mg/2ml Vial SLOW IVP SCH (22:39)
--- NOTE | 2020-02-23 07:48 | PDOC.HOSPP ---
- Subjective Encounter Date: 02/23/20 Encounter Time: 11:20 Subjective: Patient without complaint this morning. In dialysis. - Objective Vital Signs & Weight: Vital Signs (12 hours) Temp Pulse Resp BP Pulse Ox 02/23/20 03:52 98.2 F 107 H 16 136/83 98 02/23/20 00:00 92 18 02/22/20 20:00 98.4 F 110 H 20 139/83 99 Weight Weight 122 lb 10.616 oz I&O: 02/22/20 02/23/20 02/24/20 06:59 06:59 06:59 Intake Total 1050 1180 Output Total 700 900 Balance 350 280 Result Diagrams: 02/21/20 04:09 02/22/20 04:05 Hospitalist ROS - Review of Systems Constitutional: denies: fever, chills Respiratory: denies: cough, shortness of breath Cardiovascular: denies: chest pain, palpitations Gastrointestinal: denies: nausea, vomiting, abdominal pain - Medication Medications: Active Medications Generic Name Dose Route Start Last Admin Trade Name Freq PRN Reason Stop Dose Admin Acetaminophen 1,000 mg 02/20/20 17:39 02/22/20 01:53 Acetaminophen 500 Mg Tab PO 1,000 mg Q6H PRN Administration Moderate to Severe Pain (6-10) Calcitriol 0.25 mcg 02/22/20 09:00 02/22/20 09:05 Calcitriol 0.25 Mcg Cap PO 0.25 mcg DAILY LEILANI Administration Calcium Acetate 1,334 mg 02/22/20 08:00 02/22/20 16:46 Calcium Acetate 667 Mg Cap PO 1,334 mg TID-WM LEILANI Administration Epoetin Phi-epbx 7,500 unit 02/21/20 12:00 02/21/20 11:24 Epoetin Phi-Epbx (Esrd) 4,000 Unit/Ml Vial SC 7,500 unit Q7D LEILANI Administration Ceftriaxone Sodium 1 gm/ 100 mls @ 200 mls/hr 02/20/20 10:00 02/22/20 09:07 Sodium Chloride IVPB 100 mls Q24HR LEILANI Administration Ondansetron HCl 4 mg 02/19/20 21:33 02/21/20 17:39 Ondansetron Odt 4 Mg Tab PO 4 mg Q6H PRN Administration Nausea/Vomiting Sodium Chloride 10 ml 02/21/20 09:00 02/22/20 22:02 Flush - Normal Saline 10 Ml Syringe IVF 10 ml Q12HR LEILANI Administration Tramadol HCl 50 mg 02/20/20 17:39 02/21/20 01:24 Tramadol Hcl 50 Mg Tab PO 50 mg Q12H PRN Administration Pain - Exam General Appearance: NAD, awake alert ENT: moist mucosa Heart: RRR, no murmur, no gallops, no rubs Respiratory: CTAB, no wheezes, no rales, no ronchi Gastrointestinal: soft, non-tender, non-distended, normal bowel sounds Psychiatric: normal affect, normal behavior, A&O x 3 Hosp A/P (1) End-stage renal disease needing dialysis Code(s): N18.6 - END STAGE RENAL DISEASE; Z99.2 - DEPENDENCE ON RENAL DIALYSIS Status: Acute (2) Nephrotic syndrome Code(s): N04.9 - NEPHROTIC SYNDROME WITH UNSPECIFIED MORPHOLOGIC CHANGES Status: Acute (3) Uremia of renal origin Code(s): N19 - UNSPECIFIED KIDNEY FAILURE Status: Acute (4) Hypocalcemia Code(s): E83.51 - HYPOCALCEMIA Status: Acute (5) Hyperphosphatemia Code(s): E83.39 - OTHER DISORDERS OF PHOSPHORUS METABOLISM Status: Acute (6) Anemia in chronic renal disease Code(s): N18.9 - CHRONIC KIDNEY DISEASE, UNSPECIFIED; D63.1 - ANEMIA IN CHRONIC KIDNEY DISEASE Status: Acute - Plan Dr. Keating initiating dialysis Transfusions for anemia, now Hgb about 7 Urine growing back GBS, possible chronic infections as source of ESRD, treating with Rocephin (since 02/20/2020), can transition to oral penicillin on discharge Will need outpatient HD arranged before discharge
[2020-02-23] MEDS ORDERED: Heparin 10,000 UNITS/ 10 ML VIAL ONE (10:03)
[2020-02-23] MEDS: cefTRIAXone\\ROCEPHIN 1 GM in Sodium Chloride 0.9% 100 ML IVPB SCH (12:54)
[2020-02-23] MEDS: Calcium Acetate 667 MG CAP PO SCH ×3 (12:54→16:51)
[2020-02-23] MEDS: Calcitriol 0.25 MCG CAP PO SCH (12:55)
--- NOTE | 2020-02-23 18:42 | PRG ---
DATE OF SERVICE: 02/23/2020 SUBJECTIVE: The patient was seen at dialysis with the following vital signs. OBJECTIVE: VITAL SIGNS: Afebrile, temperature pulse 107, respiratory rate of 16, O2 saturations of 98%, blood pressure 141/88. HEENT: Unremarkable. CARDIOVASCULAR SYSTEM: First and second heart sounds were heard. RESPIRATORY SYSTEM: Clear to auscultation. DIGESTIVE SYSTEM: Revealed a benign abdomen. EXTREMITIES: No peripheral edema. SKIN: No new gross. LYMPHATICS: No peripheral lymphadenopathy. IMPRESSION: 1. End-stage renal disease. 2. Nephrotic range proteinuria. 3. Anemia of chronic kidney disease. PLAN: 1. Dialysis today and then to be on Sunday, Sunday, Sunday schedule. 2. Outpatient dialysis placement challenge. We will need the help of Case Management coordinating this. 3. Further management to be dependent on the clinical course. Job ID: [id number]
[2020-02-23] MEDS: Famotidine 20 MG TAB PO SCH (21:40)
[2020-02-23] MEDS: Acetaminophen 500 MG TAB PO PRN (21:41)
[2020-02-24 05:11] LABS: #Basophils 0.1 thou/uL (0.0-0.2); #Eosinphils 0.1 thou/uL (0.0-0.7); #Lymphocytes 2.2 thou/uL (1.20-3.40); #Monocytes 0.5 thou/uL (0.11-0.59); #Neutrophils 4.2 thou/uL (1.40-6.50); %Basophils 0.9 % (0.0-1.0); %Eosinophils 1.1 % (0.0-10.0); %Lymphocytes 31.3 % (21.0-51.0); %Monocytes 7.3 % (0.0-10.0); %Neutrophils 59.4 % (42.0-75.0); Hemoglobin 7.9 g/dL (12.0-16.0); Mean Corpuscular HGB CONC 34.1 g/dL (32.0-36.0); Mean Corpuscular Hemoglobin 33.1 pg (27.0-31.0); Mean Platelet Volume 7.4 fL (7.4-10.4); Platelet Count 212 thou/uL (130-400); RBC Distribution Width 11.1 % (11.5-14.5)
[2020-02-24 05:45] LABS: Anion Gap 15 mmol/L (10-20); BUN (Urea Nitrogen) 37 mg/dL (7.0-18.7); Calc. Creatinine Clearance 13 mL/min (70-130); Calcium 7.2 mg/dL (7.8-10.44); Carbon Dioxide 25 mmol/L (22-29); Chloride 101 mmol/L (98-107); Estimated GFR-MDRD 10; Glucose 98 mg/dL (70-105); Potassium 4.3 mmol/L (3.5-5.1); Sodium 137 mmol/L (136-145)
--- NOTE | 2020-02-24 07:39 | PDOC.HOSPP ---
- Subjective Encounter Date: 02/24/20 Encounter Time: 09:30 Subjective: Patient without complaints. No further N/V. - Objective Vital Signs & Weight: Vital Signs (12 hours) Temp Pulse Resp BP Pulse Ox 02/24/20 04:00 98.5 F 96 20 122/82 99 Weight Weight 119 lb 4.321 oz I&O: 02/23/20 02/24/20 02/25/20 06:59 06:59 06:59 Intake Total 1180 150 Output Total 900 Balance 280 150 Result Diagrams: 02/24/20 04:29 02/24/20 04:29 Hospitalist ROS - Review of Systems Constitutional: denies: fever, chills Respiratory: denies: cough, shortness of breath Cardiovascular: denies: chest pain, palpitations Gastrointestinal: denies: nausea, vomiting, abdominal pain - Medication Medications: Active Medications Generic Name Dose Route Start Last Admin Trade Name Freq PRN Reason Stop Dose Admin Acetaminophen 1,000 mg 02/20/20 17:39 02/23/20 21:41 Acetaminophen 500 Mg Tab PO 1,000 mg Q6H PRN Administration Moderate to Severe Pain (6-10) Calcitriol 0.25 mcg 02/22/20 09:00 02/23/20 12:55 Calcitriol 0.25 Mcg Cap PO 0.25 mcg DAILY LEILANI Administration Calcium Acetate 1,334 mg 02/22/20 08:00 02/23/20 16:51 Calcium Acetate 667 Mg Cap PO 1,334 mg TID-WM LEILANI Administration Epoetin Phi-epbx 7,500 unit 02/21/20 12:00 02/21/20 11:24 Epoetin Phi-Epbx (Esrd) 4,000 Unit/Ml Vial SC 7,500 unit Q7D LEILANI Administration Famotidine 20 mg 02/23/20 21:00 02/23/20 21:40 Famotidine 20 Mg Tab PO 20 mg 2100 LEILANI Administration Ceftriaxone Sodium 1 gm/ 100 mls @ 200 mls/hr 02/20/20 10:00 02/23/20 12:54 Sodium Chloride IVPB 100 mls Q24HR LEILANI Administration Ondansetron HCl 4 mg 02/19/20 21:33 02/21/20 17:39 Ondansetron Odt 4 Mg Tab PO 4 mg Q6H PRN Administration Nausea/Vomiting Sodium Chloride 10 ml 02/21/20 09:00 02/23/20 21:40 Flush - Normal Saline 10 Ml Syringe IVF 10 ml Q12HR LEILANI Administration Tramadol HCl 50 mg 02/20/20 17:39 02/21/20 01:24 Tramadol Hcl 50 Mg Tab PO 50 mg Q12H PRN Administration Pain - Exam General Appearance: NAD, awake alert ENT: moist mucosa Heart: RRR, no murmur, no gallops, no rubs Respiratory: CTAB, no wheezes, no rales, no ronchi Gastrointestinal: soft, non-tender, non-distended, normal bowel sounds Psychiatric: normal affect, normal behavior, A&O x 3 Hosp A/P (1) End-stage renal disease needing dialysis Code(s): N18.6 - END STAGE RENAL DISEASE; Z99.2 - DEPENDENCE ON RENAL DIALYSIS Status: Acute (2) Nephrotic syndrome Code(s): N04.9 - NEPHROTIC SYNDROME WITH UNSPECIFIED MORPHOLOGIC CHANGES Status: Acute (3) Uremia of renal origin Code(s): N19 - UNSPECIFIED KIDNEY FAILURE Status: Acute (4) Hypocalcemia Code(s): E83.51 - HYPOCALCEMIA Status: Acute (5) Hyperphosphatemia Code(s): E83.39 - OTHER DISORDERS OF PHOSPHORUS METABOLISM Status: Acute (6) Anemia in chronic renal disease Code(s): N18.9 - CHRONIC KIDNEY DISEASE, UNSPECIFIED; D63.1 - ANEMIA IN CHRONIC KIDNEY DISEASE Status: Acute - Plan Dr. Keating initiating dialysis Transfusions for anemia, now Hgb about 7 Urine growing back GBS, possible chronic infections as source of ESRD, treating with Rocephin (since 02/20/2020), can transition to oral penicillin on discharge Will need outpatient HD arranged before discharge
[2020-02-24] MEDS: Calcitriol 0.25 MCG CAP PO SCH (09:28)
[2020-02-24] MEDS: cefTRIAXone\\ROCEPHIN 1 GM in Sodium Chloride 0.9% 100 ML IVPB SCH (09:28)
[2020-02-24] MEDS: Calcium Acetate 667 MG CAP PO SCH ×3 (09:28→16:43)
[2020-02-24] MEDS: Acetaminophen 500 MG TAB PO PRN (11:41)
[2020-02-24] MEDS: Famotidine 20 MG TAB PO SCH (21:44)
[2020-02-25] MEDS ORDERED: Heparin 10,000 UNITS/ 10 ML VIAL ONE (08:56)
[2020-02-25] MEDS: Calcitriol 0.25 MCG CAP PO SCH (12:48)
[2020-02-25] MEDS: cefTRIAXone\\ROCEPHIN 1 GM in Sodium Chloride 0.9% 100 ML IVPB SCH (12:49)
[2020-02-25] MEDS: Calcium Acetate 667 MG CAP PO SCH ×3 (12:49→16:53)
--- NOTE | 2020-02-25 15:19 | PDOC.HOSPP ---
- Subjective Encounter Date: 02/25/20 Encounter Time: 15:15 Subjective: f/u for ESRD initiating on HD/UTI with GBS on Rocephin. Awaiting coordination for outpt HD. Pt states she is feeling ok overall. - Objective Vital Signs & Weight: Vital Signs (12 hours) Temp Pulse Resp BP Pulse Ox 02/25/20 12:40 98.5 F 91 15 153/95 H 100 02/25/20 08:00 100 02/25/20 07:20 97.8 F 110 H 16 141/94 H 99 02/25/20 04:08 98.7 F 100 20 137/91 H 98 Weight Weight 119 lb 4.321 oz I&O: 02/24/20 02/25/20 02/26/20 06:59 06:59 06:59 Intake Total 150 500 Balance 150 500 Result Diagrams: 02/24/20 04:29 02/24/20 04:29 Additional Labs: Microbiology 02/19/20 15:22 Urine clean catch Urine Culture - Final Streptococcus agalactiae Gp. B Laboratory Tests 02/19/20 02/19/20 02/19/20 13:24 14:49 19:58 Hgb 6.3 L BUN Creatinine Calcium Phosphorus Iron Ferritin B-Natriuretic Peptide 896.0 H Hep Bs Antigen Hep Bs Antibody Hep B Core Total Ab Hepatitis C Antibody SARS-CoV-2 Rap RNA(RT-PCR) Not Detected 02/20/20 02/20/20 02/20/20 03:52 03:52 03:52 Hgb 6.8 L BUN 120 H Creatinine 13.78 H Calcium 5.0 L* Phosphorus 10.3 H* Iron 70 Ferritin 50.64 B-Natriuretic Peptide Hep Bs Antigen Non-Reactive Hep Bs Antibody Reactive Hep B Core Total Ab Non-Reactive Hepatitis C Antibody Non-Reactive SARS-CoV-2 Rap RNA(RT-PCR) 02/21/20 02/21/20 02/22/20 04:09 04:09 04:05 Hgb 7.7 L BUN 88 H 38 H Creatinine 10.47 H 6.78 H Calcium 5.7 L* 6.0 L Phosphorus 7.7 H 5.3 H Iron Ferritin B-Natriuretic Peptide Hep Bs Antigen Hep Bs Antibody Hep B Core Total Ab Hepatitis C Antibody SARS-CoV-2 Rap RNA(RT-PCR) EKG Reviewed by me: Yes (Tele - SR) Hospitalist BREE Mason Medication Medications: Active Medications Generic Name Dose Route Start Last Admin Trade Name Freq PRN Reason Stop Dose Admin Acetaminophen 1,000 mg 02/20/20 17:39 02/24/20 11:41 Acetaminophen 500 Mg Tab PO 1,000 mg Q6H PRN Administration Moderate to Severe Pain (6-10) Calcitriol 0.25 mcg 02/22/20 09:00 02/25/20 12:48 Calcitriol 0.25 Mcg Cap PO 0.25 mcg DAILY LEILANI Administration Calcium Acetate 1,334 mg 02/22/20 08:00 02/25/20 12:49 Calcium Acetate 667 Mg Cap PO 1,334 mg TID-WM LEILANI Administration Epoetin Phi-epbx 7,500 unit 02/21/20 12:00 02/21/20 11:24 Epoetin Phi-Epbx (Esrd) 4,000 Unit/Ml Vial SC 7,500 unit Q7D LEILANI Administration Famotidine 20 mg 02/23/20 21:00 02/24/20 21:44 Famotidine 20 Mg Tab PO 20 mg 2100 LEILANI Administration Ceftriaxone Sodium 1 gm/ 100 mls @ 200 mls/hr 02/20/20 10:00 02/25/20 12:49 Sodium Chloride IVPB 100 mls Q24HR LEILANI Administration Ondansetron HCl 4 mg 02/19/20 21:33 02/21/20 17:39 Ondansetron Odt 4 Mg Tab PO 4 mg Q6H PRN Administration Nausea/Vomiting Sodium Chloride 10 ml 02/21/20 09:00 02/25/20 12:49 Flush - Normal Saline 10 Ml Syringe IVF 10 ml Q12HR LEILANI Administration Tramadol HCl 50 mg 02/20/20 17:39 02/21/20 01:24 Tramadol Hcl 50 Mg Tab PO 50 mg Q12H PRN Administration Pain - Exam General Appearance: NAD, awake alert Eye: PERRL, anicteric sclera ENT: normocephalic atraumatic, no oropharyngeal lesions Neck: supple, symmetric, no JVD, no thyromegaly, no lymphadenopathy Heart: RRR, no murmur, no gallops, no rubs, normal peripheral pulses Heart - other findings: S1, S2 Respiratory: CTAB, no wheezes, no rales, no ronchi, normal chest expansion, no tachypnea Gastrointestinal: soft, non-tender, non-distended, normal bowel sounds, no palpable masses Extremities: no cyanosis, no clubbing, no edema Extremities - other findings: R tunneled HD catheter and L IJ CVC in place, LUE with AV fistula Skin: normal turgor, no lesions Neurological: cranial nerve grossly intact, no new deficit Musculoskeletal: normal tone, normal strength, no muscle wasting Psychiatric: normal affect, A&O x 3 Hosp A/P (1) End-stage renal disease needing dialysis Code(s): N18.6 - END STAGE RENAL DISEASE; Z99.2 - DEPENDENCE ON RENAL DIALYSIS Status: Acute (2) Hyperphosphatemia Code(s): E83.39 - OTHER DISORDERS OF PHOSPHORUS METABOLISM Status: Acute Plan: Improving with HD, serial phosphorous monitoring, phosphorous binders (3) Hypocalcemia Code(s): E83.51 - HYPOCALCEMIA Status: Acute Plan: Improving, continue HD, Ca++ replacement (4) Uremia of renal origin Code(s): N19 - UNSPECIFIED KIDNEY FAILURE Status: Acute Plan: Improving with HD, serial monitoring (5) HTN (hypertension) Code(s): I10 - ESSENTIAL (PRIMARY) HYPERTENSION Status: Chronic Qualifiers: Hypertension type: essential hypertension Qualified Code(s): I10 - Essential (primary) hypertension Plan: Start Metoprolol 12.5mg BID, serial BP monitoring
[2020-02-25] MEDS ORDERED: Metoprolol Tartrate 25 MG TAB PO SCH (16:00)
[2020-02-25] MEDS ORDERED: Tuberculin PPD 0.1 ML VIAL I-DERMAL SCH (18:00)
--- NOTE | 2020-02-25 18:52 | PRG ---
DATE OF SERVICE: 02/25/2020 SUBJECTIVE: The patient noted with the following vital signs. OBJECTIVE: VITAL SIGNS: Afebrile, temperature 98.5, pulse 91, respiratory rate of 15, and O2 saturation 100% with blood pressure of 160/95. HEENT: Unremarkable. CARDIOVASCULAR: First and second heart sounds were heard. RESPIRATORY SYSTEM: Clear to auscultation. DIGESTIVE SYSTEM: Revealed a benign abdomen with positive bowel sounds. EXTREMITIES: No peripheral edema. SKIN: No new gross rash. LYMPHATICS: No peripheral lymphadenopathy. IMPRESSION: 1. End-stage renal disease on hemodialysis. 2. Anemia of chronic kidney disease. 3. 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 PLAN: 1. The patient currently on Sunday, Sunday, and Sunday dialysis schedule, therefore will be dialyzed today. 2. Case Management is already working on the disposition planning. 3. Further management to be dependent on the clinical course. Job ID: [id number]
[2020-02-25] MEDS: Famotidine 20 MG TAB PO SCH (20:24)
[2020-02-25] MEDS: Metoprolol Tartrate 25 MG TAB PO SCH (20:24)
--- NOTE | 2020-02-26 05:33 | PRG ---
DATE OF SERVICE: 02/24/2020 SUBJECTIVE: The patient is noted with following vital signs. OBJECTIVE: VITAL SIGNS: Afebrile with temperature 98.7, pulse 96, respiratory rate of 16, O2 of 100%, blood pressure 163/90. HEENT: Unremarkable. CARDIOVASCULAR: First and second heart sounds were heard. RESPIRATORY: Clear to auscultation. DIGESTIVE: Benign abdomen. Positive bowel sounds. EXTREMITIES: No peripheral edema. Job ID: [id number]
[2020-02-26] MEDS: Calcium Acetate 667 MG CAP PO SCH ×3 (08:41→18:17)
[2020-02-26] MEDS: Metoprolol Tartrate 25 MG TAB PO SCH ×2 (08:41→21:14)
[2020-02-26] MEDS: Calcitriol 0.25 MCG CAP PO SCH (08:41)
--- NOTE | 2020-02-26 13:28 | PDOC.HOSPP ---
- Subjective Encounter Date: 02/26/20 Encounter Time: 10:45 Subjective: f/u for ESRD on HD awaiting approval for outpt dialysis given lack of funding. No new complaints. - Objective Vital Signs & Weight: Vital Signs (12 hours) Temp Pulse Resp BP Pulse Ox 02/26/20 11:14 97.7 F 104 H 17 138/90 99 02/26/20 08:45 100 02/26/20 08:36 97.7 F 93 16 143/91 H 100 02/26/20 04:49 98.8 F 102 H 18 127/85 97 Weight Weight 113 lb 8.609 oz I&O: 02/25/20 02/26/20 02/27/20 06:59 06:59 06:59 Intake Total 1730 Balance 1730 Result Diagrams: 02/24/20 04:29 02/24/20 04:29 Additional Labs: Microbiology 02/19/20 15:22 Urine clean catch Urine Culture - Final Streptococcus agalactiae Gp. B Laboratory Tests 02/19/20 02/19/20 02/19/20 13:24 14:49 19:58 Hgb 6.3 L BUN Creatinine Calcium Phosphorus Iron Ferritin B-Natriuretic Peptide 896.0 H Hep Bs Antigen Hep Bs Antibody Hep B Core Total Ab Hepatitis C Antibody SARS-CoV-2 Rap RNA(RT-PCR) Not Detected 02/20/20 02/20/20 02/20/20 03:52 03:52 03:52 Hgb 6.8 L BUN 120 H Creatinine 13.78 H Calcium 5.0 L* Phosphorus 10.3 H* Iron 70 Ferritin 50.64 B-Natriuretic Peptide Hep Bs Antigen Non-Reactive Hep Bs Antibody Reactive Hep B Core Total Ab Non-Reactive Hepatitis C Antibody Non-Reactive SARS-CoV-2 Rap RNA(RT-PCR) 02/21/20 02/21/20 02/22/20 04:09 04:09 04:05 Hgb 7.7 L BUN 88 H 38 H Creatinine 10.47 H 6.78 H Calcium 5.7 L* 6.0 L Phosphorus 7.7 H 5.3 H Iron Ferritin B-Natriuretic Peptide Hep Bs Antigen Hep Bs Antibody Hep B Core Total Ab Hepatitis C Antibody SARS-CoV-2 Rap RNA(RT-PCR) EKG Reviewed by me: Yes (Tele - SR) Hospitalist ROS - Medication Medications: Active Medications Generic Name Dose Route Start Last Admin Trade Name Freq PRN Reason Stop Dose Admin Acetaminophen 1,000 mg 02/20/20 17:39 02/24/20 11:41 Acetaminophen 500 Mg Tab PO 1,000 mg Q6H PRN Administration Moderate to Severe Pain (6-10) Calcitriol 0.25 mcg 02/22/20 09:00 02/26/20 08:41 Calcitriol 0.25 Mcg Cap PO 0.25 mcg DAILY LEILANI Administration Calcium Acetate 1,334 mg 02/22/20 08:00 02/26/20 12:56 Calcium Acetate 667 Mg Cap PO 1,334 mg TID-WM LEILANI Administration Famotidine 20 mg 02/23/20 21:00 02/25/20 20:24 Famotidine 20 Mg Tab PO 20 mg 2100 LEILANI Administration Metoprolol Tartrate 12.5 mg 02/25/20 21:00 02/26/20 08:41 Metoprolol Tartrate 25 Mg Tab PO 12.5 mg BID LEILANI Administration Ondansetron HCl 4 mg 02/19/20 21:33 02/21/20 17:39 Ondansetron Odt 4 Mg Tab PO 4 mg Q6H PRN Administration Nausea/Vomiting Sodium Chloride 10 ml 02/21/20 09:00 02/26/20 08:44 Flush - Normal Saline 10 Ml Syringe IVF 10 ml Q12HR LEILANI Administration Tramadol HCl 50 mg 02/20/20 17:39 02/21/20 01:24 Tramadol Hcl 50 Mg Tab PO 50 mg Q12H PRN Administration Pain - Exam General Appearance: NAD, awake alert General - other findings: smiling, responsive Eye: PERRL, anicteric sclera ENT: normocephalic atraumatic, no oropharyngeal lesions Neck: supple, symmetric, no JVD, no thyromegaly, no lymphadenopathy Heart: RRR, no gallops, no rubs, normal peripheral pulses Heart - other findings: S1, S2 Respiratory: CTAB, no wheezes, no rales, no ronchi, normal chest expansion, no tachypnea Gastrointestinal: soft, non-tender, non-distended, normal bowel sounds, no palpable masses Extremities: no cyanosis, no clubbing Extremities - other findings: LUE AV fistula in place, + ecchymosis/edema Skin: normal turgor Neurological: cranial nerve grossly intact, no new deficit Musculoskeletal: normal tone, normal strength, no muscle wasting Psychiatric: normal affect, A&O x 3 Hosp A/P (1) End-stage renal disease needing dialysis Code(s): N18.6 - END STAGE RENAL DISEASE; Z99.2 - DEPENDENCE ON RENAL DIALYSIS Status: Acute Plan: Plan for outpt HD when approved from dialysis clinic, M/W/F schedule (2) Hyperphosphatemia Code(s): E83.39 - OTHER DISORDERS OF PHOSPHORUS METABOLISM Status: Acute Plan: Resolving with HD (3) Hypocalcemia Code(s): E83.51 - HYPOCALCEMIA Status: Acute Plan: Improved with HD (4) Uremia of renal origin Code(s): N19 - UNSPECIFIED KIDNEY FAILURE Status: Acute Plan: Improved with HD, resolving (5) HTN (hypertension) Code(s): I10 - ESSENTIAL (PRIMARY) HYPERTENSION Status: Chronic Qualifiers: Hypertension type: essential hypertension Qualified Code(s): I10 - Essential (primary) hypertension Plan: Improved, continue HD, Metoprolol 12.5mg BID - Plan plan discussed w/ family, social service coordinator, out of bed/ambulate, DVT proph w/SCDs Stable currently Continue HD per Renal service CM assisting with coordination for outpt HD Continue Metoprolol OOB/ambulate AM lab: CBC
--- NOTE | 2020-02-26 19:22 | PRG ---
DATE OF SERVICE: 02/26/2020 SUBJECTIVE: The patient was seen and examined, noted with the following vital signs. OBJECTIVE: VITAL SIGNS: Afebrile, temperature 98.2, pulse 100, respiratory rate of 16, O2 saturations of 100%, blood pressure 145/90. HEENT: Unremarkable. CARDIOVASCULAR SYSTEM: First and second heart sounds were heard. RESPIRATORY SYSTEM: Clear to auscultation. DIGESTIVE SYSTEM: Revealed a benign abdomen. EXTREMITIES: No peripheral edema. SKIN: No new gross rash. LYMPHATICS: No peripheral lymphadenopathy. IMPRESSION: 1. End-stage renal disease, hemodialysis dependent. 2. Anemia of chronic kidney disease. 3. Nephrotic syndrome. PLAN: 1. We will continue current hemodialysis schedule of Sunday, Sunday, and Sunday. 2. optical engineering manager coordinating outpatient dialysis placement. Job ID: [id number]
[2020-02-26] MEDS: Famotidine 20 MG TAB PO SCH (21:04)
[2020-02-26] MEDS: Acetaminophen 500 MG TAB PO PRN (21:10)
[2020-02-27] MEDS ORDERED: Epoetin (ESRD) 20,000 UNITS/ML IVP SCH (08:56)
[2020-02-27] MEDS: Metoprolol Tartrate 25 MG TAB PO SCH ×2 (12:36→21:57)
[2020-02-27] MEDS: Calcium Acetate 667 MG CAP PO SCH ×3 (12:37→16:56)
[2020-02-27] MEDS: Calcitriol 0.25 MCG CAP PO SCH (12:38)
[2020-02-27] MEDS: EPOETIN ALFA-EPBX (NON-ESRD) 3,000 UNIT/ML VIAL IVP SCH (13:10)
[2020-02-27] MEDS ORDERED: Heparin 10,000 UNITS/ 10 ML VIAL ONE (13:51)
[2020-02-27 14:01] LABS: #Eosinphils 0.1 thou/uL (0.0-0.7); #Lymphocytes 1.4 thou/uL (1.20-3.40); #Monocytes 0.4 thou/uL (0.11-0.59); #Neutrophils 6.1 thou/uL (1.40-6.50); %Basophils 0.1 % (0.0-1.0); %Eosinophils 0.8 % (0.0-10.0); %Lymphocytes 17.5 % (21.0-51.0); %Monocytes 4.8 % (0.0-10.0); %Neutrophils 76.7 % (42.0-75.0); Mean Corpuscular HGB CONC 35.8 g/dL (32.0-36.0); Mean Corpuscular Hemoglobin 34.6 pg (27.0-31.0); Mean Corpuscular Volume 96.6 fL (78.0-98.0); Platelet Count 233 thou/uL (130-400); RBC Distribution Width 11.3 % (11.5-14.5); Red Blood Cell (RBC) Count 2.32 mill/uL (4.20-5.40)
[2020-02-27] MEDS ORDERED: Tuberculin PPD 0.1 ML VIAL I-DERMAL SCH (14:30)
[2020-02-27 14:31] LABS: Albumin 3.7 g/dL (3.5-5.0); Anion Gap 14 mmol/L (10-20); BUN (Urea Nitrogen) 23 mg/dL (7.0-18.7); BUN/Creatinine Ratio 7.35; Calc. Creatinine Clearance 21 mL/min (70-130); Calcium 8.4 mg/dL (7.8-10.44); Carbon Dioxide 29 mmol/L (22-29); Chloride 99 mmol/L (98-107); Estimated GFR-MDRD 17; Glucose 82 mg/dL (70-105); Potassium 3.9 mmol/L (3.5-5.1); Sodium 138 mmol/L (136-145)
[2020-02-27 14:39] LABS: Phosphorus 1.4 mg/dL (2.3-4.7)
--- NOTE | 2020-02-27 16:04 | PDOC.HOSPP ---
- Subjective Encounter Date: 02/27/20 Encounter Time: 12:45 Subjective: pt up in bed no complains - Objective Vital Signs & Weight: Vital Signs (12 hours) Temp Pulse Resp BP Pulse Ox 02/27/20 12:00 98.2 F 98 15 151/90 H 97 02/27/20 08:00 97.9 F 103 H 16 158/91 H 97 Weight Weight 113 lb 8.609 oz I&O: 02/26/20 02/27/20 02/28/20 06:59 06:59 06:59 Intake Total 1730 480 Balance 1730 480 Result Diagrams: 02/27/20 09:04 02/27/20 09:04 Hospitalist ROS - Review of Systems Cardiovascular: denies: chest pain, palpitations, orthopnea, paroxysmal noc. dyspnea, edema, light headedness, other Gastrointestinal: denies: nausea, vomiting, abdominal pain, diarrhea, constipation, melena, hematochezia, other Genitourinary: denies: dysuria, frequency, incontinence, hematuria, retention, other - Medication Medications: Active Medications Generic Name Dose Route Start Last Admin Trade Name Freq PRN Reason Stop Dose Admin Acetaminophen 1,000 mg 02/20/20 17:39 02/26/20 21:10 Acetaminophen 500 Mg Tab PO 1,000 mg Q6H PRN Administration Moderate to Severe Pain (6-10) Calcitriol 0.25 mcg 02/22/20 09:00 02/27/20 12:38 Calcitriol 0.25 Mcg Cap PO 0.25 mcg DAILY LEILANI Administration Calcium Acetate 1,334 mg 02/22/20 08:00 02/27/20 12:59 Calcium Acetate 667 Mg Cap PO Not Given TID-WM LEILANI Epoetin Phi-epbx 5,000 unit 02/27/20 12:00 02/27/20 13:10 Epoetin Phi-Epbx (Non-Esrd) 3,000 Unit/Ml Vial IVP 5,000 unit MoWeFr LEILANI Administration Famotidine 20 mg 02/23/20 21:00 02/26/20 21:04 Famotidine 20 Mg Tab PO 20 mg 2100 LEILANI Administration Metoprolol Tartrate 12.5 mg 02/25/20 21:00 02/27/20 12:36 Metoprolol Tartrate 25 Mg Tab PO 12.5 mg BID LEILANI Administration Ondansetron HCl 4 mg 10/22/20 21:33 02/21/20 17:39 Ondansetron Odt 4 Mg Tab PO 4 mg Q6H PRN Administration Nausea/Vomiting Sodium Chloride 10 ml 02/21/20 09:00 02/27/20 12:38 Flush - Normal Saline 10 Ml Syringe IVF Not Given Q12HR LEILANI Tramadol HCl 50 mg 02/20/20 17:39 02/21/20 01:24 Tramadol Hcl 50 Mg Tab PO 50 mg Q12H PRN Administration Pain - Exam Neck: negative: supple, symmetric, no JVD, no thyromegaly, no lymphadenopathy, no carotid bruit, JVD Heart: negative: RRR, no murmur, no gallops, no rubs, normal peripheral pulses, irregular, diminshed peripheral pulses, murmur present, II/IV, III/IV Respiratory: negative: CTAB, no wheezes, no rales, no ronchi, normal chest expansion, no tachypnea, normal percussion, rales, rhonchi, tachypneic, wheezes Gastrointestinal: negative: soft, non-tender, non-distended, normal bowel sounds, no palpable masses, no hepatomegaly, no splenomegaly, no bruit, no guarding, no rigidity, tender to palpation, distended, diminished bowl sounds, voluntary guarding Hosp A/P (1) Anemia in chronic renal disease Code(s): N18.9 - CHRONIC KIDNEY DISEASE, UNSPECIFIED; D63.1 - ANEMIA IN CHRONIC KIDNEY DISEASE Status: Acute (2) End-stage renal disease needing dialysis Code(s): N18.6 - END STAGE RENAL DISEASE; Z99.2 - DEPENDENCE ON RENAL DIALYSIS Status: Acute (3) HTN (hypertension) Code(s): I10 - ESSENTIAL (PRIMARY) HYPERTENSION Status: Chronic Qualifiers: Hypertension type: essential hypertension Qualified Code(s): I10 - Essential (primary) hypertension (4) Hyperlipemia Code(s): E78.5 - HYPERLIPIDEMIA, UNSPECIFIED Status: Acute Qualifiers: Hyperlipidemia type: Mixed hyperlipidemia Qualified Code(s): E78.2 - Mixed hyperlipidemia (5) Hypophosphatemia Code(s): E83.39 - OTHER DISORDERS OF PHOSPHORUS METABOLISM Status: Acute - Plan CS for placement. will replace phosphorous. s/p fistula placed to left arm.
[2020-02-27] MEDS ORDERED: Sodium Phosphate 15 MMOL in Sodium Chloride 0.9% 250 ML 250 ML IVPB SCH (16:15)
--- NOTE | 2020-02-27 18:11 | PRG ---
DATE OF SERVICE: 02/27/2020 SUBJECTIVE: The patient is doing very well at dialysis with the following vital signs. OBJECTIVE: VITAL SIGNS: Afebrile, temperature 98.5, pulse 101, respiratory rate of 16, blood pressure 132/78, O2 saturations of 95%. HEENT: Unremarkable. CARDIOVASCULAR SYSTEM: First and second heart sounds were heard. RESPIRATORY SYSTEM: Clear to auscultation. DIGESTIVE SYSTEM: Revealed a benign abdomen. EXTREMITIES: No peripheral edema. SKIN: No new gross rash. LYMPHATICS: No peripheral lymphadenopathy. IMPRESSION: 1. End-stage renal disease, on hemodialysis. 2. Anemia of chronic kidney disease. 3. 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 PLAN: 1. The patient to undergo dialysis in accordance with the schedule today. 2. Outpatient dispo planning being conducted by the case briefer. Job ID: [id number]
[2020-02-27] MEDS: READ PPD TEST SITE PO SCH (20:15)
[2020-02-27] MEDS: Famotidine 20 MG TAB PO SCH (21:58)
[2020-02-28] MEDS: Metoprolol Tartrate 25 MG TAB PO SCH ×2 (08:27→20:23)
[2020-02-28] MEDS: Calcitriol 0.25 MCG CAP PO SCH (08:27)
[2020-02-28] MEDS: Calcium Acetate 667 MG CAP PO SCH ×3 (08:27→16:27)
--- NOTE | 2020-02-28 16:17 | PDOC.HOSPP ---
- Subjective Encounter Date: 02/28/20 Subjective: No new events overnight. - Objective Vital Signs & Weight: Vital Signs (12 hours) Temp Pulse Resp BP Pulse Ox 02/28/20 11:24 97.9 F 91 17 132/84 98 02/28/20 08:20 98.2 F 102 H 18 134/72 99 02/28/20 04:50 98.6 F 96 18 119/75 98 Weight Weight 112 lb 10.499 oz I&O: 02/27/20 02/28/20 02/29/20 06:59 06:59 05:59 Intake Total 480 650 Output Total 300 Balance 480 350 Result Diagrams: 02/27/20 09:04 02/27/20 09:04 Hospitalist ROS - Medication Medications: Active Medications Generic Name Dose Route Start Last Admin Trade Name Freq PRN Reason Stop Dose Admin Acetaminophen 1,000 mg 02/20/20 17:39 02/26/20 21:10 Acetaminophen 500 Mg Tab PO 1,000 mg Q6H PRN Administration Moderate to Severe Pain (6-10) Calcitriol 0.25 mcg 02/22/20 09:00 02/28/20 08:27 Calcitriol 0.25 Mcg Cap PO 0.25 mcg DAILY LEILANI Administration Calcium Acetate 1,334 mg 02/22/20 08:00 02/28/20 11:22 Calcium Acetate 667 Mg Cap PO 1,334 mg TID-WM LEILANI Administration Epoetin Phi-epbx 5,000 unit 02/27/20 12:00 02/27/20 13:10 Epoetin Phi-Epbx (Non-Esrd) 3,000 Unit/Ml Vial IVP 5,000 unit MoWeFr LEILANI Administration Famotidine 20 mg 02/23/20 21:00 02/27/20 21:58 Famotidine 20 Mg Tab PO 20 mg 2100 LEILANI Administration Metoprolol Tartrate 12.5 mg 02/25/20 21:00 02/28/20 08:27 Metoprolol Tartrate 25 Mg Tab PO 12.5 mg BID LEILANI Administration Read Ppd Test Site 0 each 02/27/20 18:00 02/27/20 20:15 PO 02/28/20 18:01 1 each 1800 LEILANI Administration Ondansetron HCl 4 mg 02/19/20 21:33 02/21/20 17:39 Ondansetron Odt 4 Mg Tab PO 4 mg Q6H PRN Administration Nausea/Vomiting Sodium Chloride 10 ml 02/21/20 09:00 02/28/20 08:28 Flush - Normal Saline 10 Ml Syringe IVF 10 ml Q12HR LEILANI Administration Tramadol HCl 50 mg 02/20/20 17:39 02/21/20 01:24 Tramadol Hcl 50 Mg Tab PO 50 mg Q12H PRN Administration Pain - Exam General Appearance: awake alert ENT: normocephalic atraumatic Neck: supple, no JVD Heart: RRR Respiratory: normal chest expansion, no tachypnea Extremities: no cyanosis, no clubbing, no edema Neurological: cranial nerve grossly intact Hosp A/P - Plan Hosp A/P (1) Anemia in chronic renal disease Code(s): N18.9 - CHRONIC KIDNEY DISEASE, UNSPECIFIED; D63.1 - ANEMIA IN CHRONIC KIDNEY DISEASE Status: Acute (2) End-stage renal disease needing dialysis Code(s): N18.6 - END STAGE RENAL DISEASE; Z99.2 - DEPENDENCE ON RENAL DIALYSIS Status: Acute (3) HTN (hypertension) Code(s): I10 - ESSENTIAL (PRIMARY) HYPERTENSION Status: Chronic Qualifiers: Hypertension type: essential hypertension Qualified Code(s): I10 - Essential (primary) hypertension (4) Hyperlipemia Code(s): E78.5 - HYPERLIPIDEMIA, UNSPECIFIED Status: Acute Qualifiers: Hyperlipidemia type: Mixed hyperlipidemia Qualified Code(s): E78.2 - Mixed hyperlipidemia (5) Hypophosphatemia Code(s): E83.39 - OTHER DISORDERS OF PHOSPHORUS METABOLISM Status: Acute - Plan No signs of overt load or uremia. Continue hemodialysis per nephrology. Awaiting availability of dialysis chair for discharge.
[2020-02-28] MEDS: Famotidine 20 MG TAB PO SCH (20:23)
[2020-02-28] MEDS: READ PPD TEST SITE PO SCH (20:24)
[2020-02-29] MEDS: Calcitriol 0.25 MCG CAP PO SCH (08:55)
[2020-02-29] MEDS: Metoprolol Tartrate 25 MG TAB PO SCH ×2 (08:55→20:38)
[2020-02-29] MEDS: Calcium Acetate 667 MG CAP PO SCH ×3 (09:13→16:58)
--- NOTE | 2020-02-29 10:42 | PDOC.HOSPP ---
- Subjective Encounter Date: 02/29/20 Subjective: The patient is feeling better today. No new complaints. - Objective Vital Signs & Weight: Vital Signs (12 hours) Temp Pulse Resp BP Pulse Ox 02/29/20 08:30 98.2 F 105 H 17 131/79 98 02/29/20 03:49 98.8 F 92 16 114/68 Weight Weight 115 lb 8.356 oz I&O: 02/28/20 02/29/20 03/01/20 07:59 06:59 06:59 Intake Total Output Total Balance Result Diagrams: 02/27/20 09:04 02/27/20 09:04 Hospitalist ROS - Medication Medications: Active Medications Generic Name Dose Route Start Last Admin Trade Name Freq PRN Reason Stop Dose Admin Acetaminophen 1,000 mg 02/20/20 17:39 02/26/20 21:10 Acetaminophen 500 Mg Tab PO 1,000 mg Q6H PRN Administration Moderate to Severe Pain (6-10) Calcitriol 0.25 mcg 02/22/20 09:00 02/29/20 08:55 Calcitriol 0.25 Mcg Cap PO 0.25 mcg DAILY LEILANI Administration Calcium Acetate 1,334 mg 02/22/20 08:00 02/29/20 09:13 Calcium Acetate 667 Mg Cap PO 1,334 mg TID-WM LEILANI Administration Epoetin Phi-epbx 5,000 unit 02/27/20 12:00 02/27/20 13:10 Epoetin Phi-Epbx (Non-Esrd) 3,000 Unit/Ml Vial IVP 5,000 unit MoWeFr LEILANI Administration Famotidine 20 mg 02/23/20 21:00 02/28/20 20:23 Famotidine 20 Mg Tab PO 20 mg 2100 LEILANI Administration Metoprolol Tartrate 12.5 mg 02/25/20 21:00 02/29/20 08:55 Metoprolol Tartrate 25 Mg Tab PO 12.5 mg BID LEILANI Administration Ondansetron HCl 4 mg 02/19/20 21:33 02/21/20 17:39 Ondansetron Odt 4 Mg Tab PO 4 mg Q6H PRN Administration Nausea/Vomiting Sodium Chloride 10 ml 02/21/20 09:00 02/29/20 09:14 Flush - Normal Saline 10 Ml Syringe IVF 10 ml Q12HR LEILANI Administration Tramadol HCl 50 mg 02/20/20 17:39 02/21/20 01:24 Tramadol Hcl 50 Mg Tab PO 50 mg Q12H PRN Administration Pain - Exam General Appearance: awake alert ENT: normocephalic atraumatic Neck: supple, no JVD Heart: RRR Respiratory: normal chest expansion, no tachypnea Neurological: cranial nerve grossly intact, no focal deficits Hosp A/P - Plan Hosp A/P (1) Anemia in chronic renal disease Code(s): N18.9 - CHRONIC KIDNEY DISEASE, UNSPECIFIED; D63.1 - ANEMIA IN CHRONIC KIDNEY DISEASE Status: Acute (2) End-stage renal disease needing dialysis Code(s): N18.6 - END STAGE RENAL DISEASE; Z99.2 - DEPENDENCE ON RENAL DIALYSIS Status: Acute (3) HTN (hypertension) Code(s): I10 - ESSENTIAL (PRIMARY) HYPERTENSION Status: Chronic Qualifiers: Hypertension type: essential hypertension Qualified Code(s): I10 - Essential (primary) hypertension (4) Hyperlipemia Code(s): E78.5 - HYPERLIPIDEMIA, UNSPECIFIED Status: Acute Qualifiers: Hyperlipidemia type: Mixed hyperlipidemia Qualified Code(s): E78.2 - Mixed hyperlipidemia (5) Hypophosphatemia Code(s): E83.39 - OTHER DISORDERS OF PHOSPHORUS METABOLISM Status: Acute - Plan No signs of volume overload or uremic symptoms. Continue hemodialysis per nephrology. Awaiting availability of dialysis chair for discharge.
[2020-02-29] MEDS: Famotidine 20 MG TAB PO SCH (20:38)
--- NOTE | 2020-02-29 21:13 | PRG ---
DATE OF SERVICE: 02/29/2020 SUBJECTIVE: The patient noted with the following vital signs. OBJECTIVE: VITAL SIGNS: Afebrile, temperature 98.2, pulse 93, respiratory rate , O2 saturation 99%, and blood pressure 128/78. HEENT: Unremarkable. CARDIOVASCULAR: First and second heart sounds were heard. RESPIRATORY: Clear to auscultation. DIGESTIVE: Revealed a benign abdomen. EXTREMITIES: No peripheral edema. SKIN: No new gross rash. LYMPHATICS: No peripheral lymphadenopathy. IMPRESSION: 1. End-stage renal disease. 2. Anemia of chronic kidney disease. 3. 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 PLAN: 1. The patient to continue with Sunday, Sunday, Sunday hemodialysis schedule. 2. Erythropoiesis stimulating agents. 3. manager customer service coordinating outpatient dialysis placement. 4. Further management to be dependent on the clinical course. Job ID: [id number]
[2020-03-01 03:21] VITALS: TEMP 98.5
[2020-03-01] MEDS: Calcium Acetate 667 MG CAP PO SCH ×2 (10:08→11:34)
[2020-03-01] MEDS: EPOETIN ALFA-EPBX (NON-ESRD) 3,000 UNIT/ML VIAL IVP SCH (10:51)
[2020-03-01 11:31] VITALS: BP 170/89
[2020-03-01] MEDS ORDERED: Heparin 10,000 UNITS/ 10 ML VIAL ONE (11:41)
[2020-03-01] MEDS: Metoprolol Tartrate 25 MG TAB PO SCH (11:56)
[2020-03-01] MEDS: Calcitriol 0.25 MCG CAP PO SCH (11:58)
--- NOTE | 2020-03-01 16:55 | PRG ---
DATE OF SERVICE: 03/01/2020 SUBJECTIVE: The patient was seen on dialysis. Noted with the following vital signs. OBJECTIVE: VITAL SIGNS: Afebrile, temperature 98.5, pulse 87, respiratory rate of 16, O2 saturations are 98% with blood pressure 124/78. HEENT: Unremarkable. CARDIOVASCULAR SYSTEM: First and second sounds were heard. RESPIRATORY SYSTEM : Clear to auscultation. DIGESTIVE SYSTEM: Revealed a benign abdomen. EXTREMITIES: No peripheral edema . SKIN: No new gross rash. LYMPHATICS: No peripheral lymphadenopathy. IMPRESSION: 1. End-stage renal disease, on dialysis. 2. Anemia of chronic kidney disease. 3. Nephrotic range proteinuria. PLAN: 1. The patient to be dialyzed today in accordance with the schedule. 2. Once the patient was accepted in outpatient facility, the patient can be discharged. Job ID: [id number]
--- NOTE | 2020-03-02 01:23 | DIS ---
DATE OF ADMISSION: 02/19/2020 DATE OF DISCHARGE: 03/01/2020 DISCHARGE DIAGNOSES: 1. End-stage renal disease. 2. Anemia of chronic kidney disease. 3. Nephrotic syndrome. 4. Hypocalcemia. 5. Vitamin D deficiency. DISCHARGE MEDICATIONS: 1. Metoprolol tartrate 12.5 mg orally twice daily. 2. Famotidine 20 mg orally nightly. 3. Calcium acetate 1334 mg orally t.i.d. 4. Calcitriol 0.25 mcg orally daily. 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 In the ER, initial workup revealed acute on chronic renal failure. The patient's brake coupler dinkey was consulted, and her kidney function was deemed to have deteriorated enough to warrant renal replacement therapy. A dialysis catheter was placed by Surgery Team and the patient was initiated on hemodialysis. She was stabilized on a dialysis regimen, and an outpatient dialysis chair was arranged prior to discharge. The patient was also found to be hypocalcemic, this is likely due to low active vitamin D given the chronic kidney disease. This was managed with calcitriol and calcium as above. Job ID: [id number]
== END 2020-03-01 13:06 | disposition home or self-care (01) | DRG 673 ==
LOC: ERS 12:33 → 2NO 17:58
PROVIDERS: ADMIT Emergency Medicine; ATTEND Internal Medicine
PROC: 031C0ZF Bypass Left Radial Artery to Lower Arm Vein, Open Approach (ICD-10-PCS; principal; 2020-02-19)
PROC: 30233N1 Transfusion of Nonautologous Red Blood Cells into Peripheral Vein, Percutaneous Approach (ICD-10-PCS; 2020-02-19)
PROC: 06HY33Z Insertion of Infusion Device into Lower Vein, Percutaneous Approach (ICD-10-PCS; 2020-02-19)
PROC: 5A1D70Z Performance of Urinary Filtration, Intermittent, Less than 6 Hours Per Day (ICD-10-PCS; 2020-02-19)
PROC: 0JH63XZ Insertion of Tunneled Vascular Access Device into Chest Subcutaneous Tissue and Fascia, Percutaneous Approach (ICD-10-PCS; 2020-02-20)
PROC: 02HV33Z Insertion of Infusion Device into Superior Vena Cava, Percutaneous Approach (ICD-10-PCS; 2020-02-20)
PROC: B5181ZA Fluoroscopy of Superior Vena Cava using Low Osmolar Contrast, Guidance (ICD-10-PCS; 2020-02-20)
DX: I12.0 Hypertensive chronic kidney disease with stage 5 chronic kidney disease or end stage renal disease (principal); N18.6 End stage renal disease; N17.9 Acute kidney failure, unspecified; E87.2 Acidosis; N25.81 Secondary hyperparathyroidism of renal origin; D63.1 Anemia in chronic kidney disease; E55.9 Vitamin D deficiency, unspecified; Z20.828 Contact with and (suspected) exposure to other viral communicable diseases; E83.39 Other disorders of phosphorus metabolism; Z79.899 Other long term (current) drug therapy
CPT/HCPCS: 36415; 36430; 36556; 71045; 76770; 80048; 80053; 80061; 80069; 81003; 81015; 82306; 82728; 83540; 83550; 83605; 83690; 83735; 83880; 83970; 84484; 84703; 85025; 86580; 86704; 86706; 86803; 86850; 86900; 86901; 87077; 87086; 87340; 87635; 90935; 93005; 93970; C1751; C1752; G0257; J0696; J1100; J1642; J1644; J2001; J2250; J2405; J2704; J3010; J3490; J7050; P9016; Q0162; Q5105; Q5106; S0028; U0002; U0003

== ENCOUNTER 2020-10-01 15:06 | Emergency (ER) | payer BC, OTHER | END 2020-10-01 16:56 | disposition home or self-care (01) | LOC: ERS 15:06 | DX: T78.40XA Allergy, unspecified, initial encounter (principal); I10 Essential (primary) hypertension; Z79.899 Other long term (current) drug therapy; X58.XXXA Exposure to other specified factors, initial encounter | CPT/HCPCS: 93005 ==

== ENCOUNTER 2020-11-10 09:56 | Day surgery (SDC) | payer BC ==
[2020-11-09 14:02] VITALS: BMI 21.2
[2020-11-10] MEDS ORDERED: Bupivacaine PF 0.5% 30 ML VIAL ONE (10:09)
[2020-11-10] MEDS ORDERED: Lidocaine 1% w/Epinephrine 1:100K 20 ML VIAL ONE (10:09)
[2020-11-10] MEDS ORDERED: Heparin 10,000 UNITS/ 10 ML VIAL ONE (10:09)
[2020-11-10] MEDS ORDERED: Bupivacaine 0.25% HCL 30 ML VIAL ONE (10:09)
[2020-11-10] MEDS ORDERED: Midazolam HCl 2 mg/2 ml Vial ONE (10:50)
[2020-11-10] MEDS ORDERED: Fentanyl 100 MCG/2 ML VIAL ONE ×2 (10:50→12:50)
[2020-11-10 10:58] LABS: BHCG - Serum Negative (NEGATIVE); Pregs Control Background? CLEAR/WHITE (CLR/WHITE); Pregs Control Bar Appear? YES (CONTROL BAR)
[2020-11-10 11:07] LABS: #Eosinphils 0.1 thou/uL (0.0-0.7); #Lymphocytes 1.9 thou/uL (1.20-3.40); #Monocytes 0.5 thou/uL (0.11-0.59); #Neutrophils 4.2 thou/uL (1.40-6.50); %Basophils 0.7 % (0.0-1.0); %Eosinophils 0.8 % (0.0-10.0); %Lymphocytes 28.7 % (21.0-51.0); %Neutrophils 62.8 % (42.0-75.0); Hemoglobin 10.8 g/dL (12.0-16.0); MDiff Complete? YES; Macrocytosis SLIGHT = 6-15 cells (100X) (0-5/hpf); Mean Corpuscular HGB CONC 34.7 g/dL (32.0-36.0); Mean Corpuscular Hemoglobin 36.4 pg (27.0-31.0); Mean Platelet Volume 6.9 fL (7.4-10.4); Platelet Count 251 thou/uL (130-400); Platelet Morphology Comment Appears Adequate; Polychromasia SLIGHT = 2-3 cells (100X) (0-2/hpf); RBC Distribution Width 13.8 % (11.5-14.5); Red Blood Cell (RBC) Count 2.96 mill/uL (4.20-5.40); White Blood Cell (WBC) Count 6.7 thou/uL (4.8-10.8)
[2020-11-10 11:08] LABS: Anion Gap 20 mmol/L (10-20); BUN (Urea Nitrogen) 31 mg/dL (7.0-18.7); Calc. Creatinine Clearance 9 mL/min (70-130); Calcium 8.4 mg/dL (7.8-10.44); Carbon Dioxide 26 mmol/L (22-29); Chloride 98 mmol/L (98-107); Glucose 93 mg/dL (70-105); Potassium 4.8 mmol/L (3.5-5.1); Sodium 139 mmol/L (136-145)
[2020-11-10] MEDS ORDERED: Rocuronium Bromide 10 MG/ML (10ML VIAL) ONE (11:24)
[2020-11-10] MEDS ORDERED: Dexamethasone 20 MG/5 ML VIAL ONE (11:24)
[2020-11-10] MEDS ORDERED: Glycopyrrolate 0.2 MG/ML 5 ML SYRINGE ONE (11:24)
[2020-11-10] MEDS ORDERED: PROPOFOL 200 MG/20 ML VIAL ONE (11:24)
[2020-11-10] MEDS ORDERED: Ondansetron PF 4 MG/2 ML Vial ONE (11:24)
[2020-11-10] MEDS ORDERED: PHENYLEPHRINE-NS 100 MCG/ML 10 ML SYRINGE ONE (11:24)
[2020-11-10] MEDS ORDERED: Lidocaine 1% PF 5 ML VIAL ONE (11:24)
[2020-11-10] MEDS ORDERED: Phenylephrine 10 MG/ML VIAL ONE (12:46)
[2020-11-10] MEDS ORDERED: HYDROcodone/Acetaminophen 5/325 mg Tablet ONE (13:51)
== END 2020-11-10 14:30 | disposition home or self-care (01) ==
LOC: SDC 09:56
PROVIDERS: ATTEND Specialist
PROC: 0WHG43Z Insertion of Infusion Device into Peritoneal Cavity, Percutaneous Endoscopic Approach (ICD-10-PCS; principal; 2020-11-10)
DX: I12.0 Hypertensive chronic kidney disease with stage 5 chronic kidney disease or end stage renal disease (principal); N18.6 End stage renal disease; D63.1 Anemia in chronic kidney disease; Z79.899 Other long term (current) drug therapy; Z88.1 Allergy status to other antibiotic agents; Z88.8 Allergy status to other drugs, medicaments and biological substances
CPT/HCPCS: 36415; 80048; 84703; 85025; J0690; J1100; J1644; J2250; J2370; J2405; J2704; J3010; S0020

== ENCOUNTER 2023-03-26 14:08 | Outpatient (CLI) | payer BC | END 2023-03-26 14:09 | disposition home or self-care (01) | LOC: BICULT 14:08 | PROVIDERS: ATTEND Family Medicine | DX: N93.9 Abnormal uterine and vaginal bleeding, unspecified (principal); D64.9 Anemia, unspecified; R93.89 Abnormal findings on diagnostic imaging of other specified body structures | CPT/HCPCS: 76856 ==